=== PATIENT | female | born 1975 | race Caucasian/White ===

== ENCOUNTER 2021-04-03 14:08 | Outpatient (CLI) | payer BC, SELFPAY ==
--- NOTE | ~2021-04-03 | US_ITS ---
US abdomen limited INDICATION: Right upper quadrant pain PROCEDURE: Realtime right upper abdominal ultrasound. COMPARISON: No prior studies for comparison. FINDINGS: The pancreas is normal without focal mass or pancreatic ductal dilation. Liver echotexture is normal without focal mass or intrahepatic biliary dilatation. There is normal directional flow i n the portal vein. The gallbladder is normal without stones, gallbladder wall thickening or pericholecystic fluid. Comm on bile duct measures 3 mm. No sonographic Spring's sign. IMPRESSION: 1: Normal limited abdominal ultrasound. Reviewed, dictated and finalized at location A.
== END 2021-04-03 14:09 | disposition home or self-care (01) ==
PROVIDERS: PCP Family Medicine; Visit Provider Family Medicine
DX: R10.11 Right upper quadrant pain (principal)
CPT/HCPCS: 76705

== ENCOUNTER 2022-08-04 10:59 | Outpatient (CLI) | payer BC, SELFPAY ==
[2022-08-04 11:11] LABS: Basophils Percent Auto 0.6 % (0.2-1.2); Eosinophils Absolute Auto 0.4 K/mm3 (0-0.3); Hemoglobin 13.4 g/dL (12.0-15.0); Immature Granulocyte Absolute 0.01 K/mm3 (0.00-0.031); Immature Granulocyte Percent A 0.1 % (0-0.5); Lymphocytes Absolute Auto 2.49 K/mm3 (0.9-3.2); Lymphocytes Percent Auto 36.1 % (18.3-44.2); Mean Corpuscular HGB Conc 32.7 g/dl (32-36); Mean Corpuscular Hemoglobin 30.4 pg (26-34); Mean Platelet Volume 9.1 fl (7.4-10.4); Monocytes Absolute Auto 0.6 K/mm3 (0.1-0.6); Monocytes Percent Auto 8.3 % (2.6-8.5); Neutrophils Absolute Auto 3.4 K/mm3 (1.3-6.7); Neutrophils Percent Auto 48.9 % (45.5-73.1); Platelet Count Result 470 k/mm3 (150-375); Red Blood Count 4.41 M/mm3 (4.2-5.4); White Blood Count 6.9 K/mm3 (4.5-10.0)
[2022-08-04 12:33] LABS: Alanine Aminotransferase 18 U/L (6-35); Albumin Level 4.6 g/dL (3.5-5.1); Alkaline Phosphatase 54 U/L (38-126); Anion Gap 5 mmol/L (8-16); Aspartate Amino Transferase 14 U/L (14-36); Bilirubin,Total 0.5 mg/dL (0.2-1.3); Blood Urea Nitrogen 13 mg/dL (7-17); CRP 0.5 mg/dL (<1.0); Calcium 9.1 mg/dL (8.4-10.2); Carbon Dioxide 30 mmol/L (22-30); Chloride 103 mmol/L (98-107); Estimated Glomerular Filt Rate > 60; Glucose 102 mg/dL (65-110); Potassium 4.6 mmol/L (3.4-5.0); Sodium 138 mmol/L (137-145)
[2022-08-04 13:22] LABS: Erythrocyte Sedimentation Rate 15 mm/hr (0-20)
== END 2022-08-04 11:00 | disposition home or self-care (01) ==
LOC: ANHLAB 11:01
PROVIDERS: PCP Family Medicine; Visit Provider Internal Medicine Hematology & Oncology
DX: D47.3 Essential (hemorrhagic) thrombocythemia (principal)
CPT/HCPCS: 36415; 80053; 85025; 85652; 86140

== ENCOUNTER 2022-10-28 12:52 | Outpatient (CLI) | payer BC, SELFPAY ==
[2022-10-28 13:08] LABS: Basophils Absolute Auto 0.1 K/mm3 (0.0-0.1); Basophils Percent Auto 1.4 % (0.2-1.2); Eosinophils Absolute Auto 0.6 K/mm3 (0-0.3); Eosinophils Percent Auto 7.2 % (0-4.4); Hematocrit 40.1 % (37.0-47.0); Immature Granulocyte Absolute 0.01 K/mm3 (0.00-0.031); Immature Granulocyte Percent A 0.1 % (0-0.5); Lymphocytes Absolute Auto 2.09 K/mm3 (0.9-3.2); Lymphocytes Percent Auto 27.5 % (18.3-44.2); Mean Corpuscular HGB Conc 32.4 g/dl (32-36); Mean Corpuscular Hemoglobin 30.7 pg (26-34); Mean Corpuscular Volume 94.8 fl (80-100); Mean Platelet Volume 9.3 fl (7.4-10.4); Monocytes Absolute Auto 0.7 K/mm3 (0.1-0.6); Monocytes Percent Auto 9.3 % (2.6-8.5); Neutrophils Absolute Auto 4.1 K/mm3 (1.3-6.7); Neutrophils Percent Auto 54.5 % (45.5-73.1); Platelet Count Result 429 k/mm3 (150-375); Red Blood Count 4.23 M/mm3 (4.2-5.4); Red Cell Distribution Width 15.1 % (11.5-14.5); White Blood Count 7.6 K/mm3 (4.5-10.0)
== END 2022-10-28 12:53 | disposition home or self-care (01) ==
LOC: ANHLAB 12:54
PROVIDERS: PCP Family Medicine; Visit Provider Internal Medicine Hematology & Oncology
DX: D47.3 Essential (hemorrhagic) thrombocythemia (principal)
CPT/HCPCS: 36415; 85025

== ENCOUNTER 2023-01-27 14:14 | Outpatient (CLI) | payer BC, SELFPAY ==
[2023-01-27 14:24] LABS: Basophils Absolute Auto 0.1 K/mm3 (0.0-0.1); Eosinophils Absolute Auto 0.7 K/mm3 (0-0.3); Eosinophils Percent Auto 7.3 % (0-4.4); Hematocrit 38.9 % (37.0-47.0); Hemoglobin 12.7 g/dL (12.0-15.0); Immature Granulocyte Absolute 0.01 K/mm3 (0.00-0.031); Immature Granulocyte Percent A 0.1 % (0-0.5); Lymphocytes Absolute Auto 2.65 K/mm3 (0.9-3.2); Lymphocytes Percent Auto 29.6 % (18.3-44.2); Mean Corpuscular HGB Conc 32.6 g/dl (32-36); Mean Corpuscular Volume 94.9 fl (80-100); Monocytes Absolute Auto 0.8 K/mm3 (0.1-0.6); Monocytes Percent Auto 9.2 % (2.6-8.5); Neutrophils Absolute Auto 4.7 K/mm3 (1.3-6.7); Neutrophils Percent Auto 52.8 % (45.5-73.1); Platelet Count Result 391 k/mm3 (150-375); Red Cell Distribution Width 14.2 % (11.5-14.5)
== END 2023-01-27 14:15 | disposition home or self-care (01) ==
LOC: ANHLAB 14:15
PROVIDERS: PCP Family Medicine; Visit Provider Internal Medicine Hematology & Oncology
DX: D47.3 Essential (hemorrhagic) thrombocythemia (principal)
CPT/HCPCS: 36415; 85025

== ENCOUNTER 2023-03-19 10:00 | Outpatient (CLI) | payer BC, SELFPAY ==
--- NOTE | ~2023-03-19 | XR_ITS ---
Thoracic spine: Clinical Indication: Stiffness AP and lateral views were performed. No fracture is seen. There is normal alignment of the vertebrae. There is mild degenerative disc dis ease at the lower thoracic spine. Paravertebral soft tissues appear normal. 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 Reviewed, dictated and finalized at [facility]. 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
== END 2023-03-19 10:01 | disposition home or self-care (01) ==
PROVIDERS: PCP Family Medicine; Visit Provider Family Medicine
DX: M25.60 Stiffness of unspecified joint, not elsewhere classified (principal); M51.34 Other intervertebral disc degeneration, thoracic region
CPT/HCPCS: 72072

== ENCOUNTER 2023-08-03 12:43 | Outpatient (CLI) | payer BC, SELFPAY ==
[2023-08-03 12:55] LABS: Basophils Absolute Auto 0.1 K/mm3 (0.0-0.1); Basophils Percent Auto 1.1 % (0.2-1.2); Eosinophils Absolute Auto 0.6 K/mm3 (0-0.3); Eosinophils Percent Auto 7.7 % (0-4.4); Hematocrit 40.3 % (37.0-47.0); Hemoglobin 12.9 g/dL (12.0-15.0); Immature Granulocyte Absolute 0.02 K/mm3 (0.00-0.031); Immature Granulocyte Percent A 0.2 % (0-0.5); Lymphocytes Percent Auto 24.8 % (18.3-44.2); Mean Corpuscular Hemoglobin 30.6 pg (26-34); Mean Corpuscular Volume 95.7 fl (80-100); Monocytes Absolute Auto 0.8 K/mm3 (0.1-0.6); Monocytes Percent Auto 10.3 % (2.6-8.5); Neutrophils Absolute Auto 4.5 K/mm3 (1.3-6.7); Neutrophils Percent Auto 55.9 % (45.5-73.1); Platelet Count Result 399 k/mm3 (150-375); Red Blood Count 4.21 M/mm3 (4.2-5.4); Red Cell Distribution Width 14.9 % (11.5-14.5); White Blood Count 8.1 K/mm3 (4.5-10.0)
== END 2023-08-03 12:44 | disposition home or self-care (01) ==
LOC: ANHLAB 12:45
PROVIDERS: PCP Family Medicine; Visit Provider Internal Medicine Hematology & Oncology
DX: D47.3 Essential (hemorrhagic) thrombocythemia (principal)
CPT/HCPCS: 36415; 85025

== ENCOUNTER 2023-10-09 11:40 | Emergency (ER) | payer BC, SELFPAY ==
[2023-10-09] VITALS (40 sets, daily range): BP systolic 126–184; BP diastolic 71–139; PULSE 91–125; RESP 13–26; O2SAT 89–100
--- NOTE | 2023-10-09 12:03 | ED.NAVMDI ---
HPI - Nausea/Vomiting/Diarrhea General Chief complaint: Nausea/Vomiting/Diarrhea Stated complaint: severely dehydrated Time Seen by Provider: 10/09/23 12:00 History of Present Illness HPI Narrative: Patient is a 48 year old female with history of HTN here with nausea, vomiting, dizziness. She notes that 2 days ago she started noticing some redness behind her left ear along with some crusting drainage around her piercing on that ear. She went to an urgent care that day and was started on Bactrim for possible cellulitis. Her erythema and drainage have significantly improved since that time, has some continued pain in that area. She did go out for drinks 2 nights ago while watching [employer] games. Wednesday she woke up feeling poorly. She has vomited multiple times and this morning is unable to keep anything down. She has been feeling shaky and jittery, making her concerned for dehydration. She denies any chest pain. She does note some diffuse nonspecific abdominal pain after multiple episodes of vomiting. Related Data Home Medications Medication Instructions Recorded Confirmed methylphenidate HCl 10 mg tablet 10 mg PO BID 10/25/20 07/30/23 (Ritalin) estradiol 0.05 mg-norethindrone 1 patch transdermal 2XW 03/10/22 07/30/23 0.14 mg/24 hr semiwkly transderm patch (CombiPatch) Allergies Allergy/AdvReac Type Severity Reaction Status Date / Time No Known Allergies Allergy Unverified 10/09/23 12:09 Review of Systems Review of Systems: All systems reviewed & are unremarkable except as noted in HPI and below PMFSH Past Medical History Medical History ADD (attention deficit disorder) without hyperactivity Dyspepsia Elevated liver enzymes Elevated platelet count Family history of ankylosing spondylitis Headache HTN (hypertension) Hyperlipidemia Postmenopausal HRT (hormone replacement therapy) Premature ovarian failure Tachycardia Family History Family History Father Asthma Diabetes mellitus Mother Hypertension Depression Social History Social History (Updated 07/30/23 @ 15:05 by Karlene Judge) Social History: Single Smoking status: Never smoker Second hand tobacco smoke exposure: No Alcohol intake: current Alcohol use details: Occasionally Substance use: never Substance use type: does not use Do You Feel Safe in your Home?: Yes Lack of Transportation: No Lack of Food: Never True Current Housing: I Have Housing Concerned About Future Housing: No Difficulty Paying Gas/Electric Bills: No Difficulty Paying for Meds: No Currently Unemployed: No Education: Don't Know Difficulty w/ Childcare or Family Care: No Living arrangements: with family Occupation/Education: occupation 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 Gender identity (if verbalized by the patient): Female Sexual Orientation (if Verbalized by the Patient): Straight or Heterosexual Exam Narrative: GENERAL: Well-appearing, well-nourished, and in no acute distress. HEAD: Normocephalic, atraumatic. EYES: PERRLA and EOMI. ENT: Nares clear. Mucous membranes dry. NECK: Supple. CHEST: Clear to auscultation. No respiratory distress. HEART: Regular rate and rhythm. Normal peripheral pulses. ABDOMEN: Soft, nontender, nondistended. EXTREMITIES: Normal range of motion. No edema. SKIN: Warm, dry, no rash. no erythema, drainage, crusting on or around the left ear. No tenderness over the mastoid process. No swelling to this area. NEURO: No focal deficits. Alert and oriented x3. PSYCH: Normal mood and affect. Course Course Emergency Course: Chart review performed. Patient here with concerns for dehydration after multiple episodes of vomiting. PCP note from 07/30/23 reviewed. History of HTN, KAELYN, GERD. depression. Patient seen evaluated, nontoxic appearing. Concern
--- NOTE | 2023-10-09 12:58 | ECG_ITS ---
Measurements Intervals [place] Rate: 85 P: 43 WI: 142 QRS: 42 QRSD: 82 T: 29 QT: 403 QTc: 481 Interpretive Statements SINUS RHYTHM BASELINE ARTIFACT- V5 NORMAL ECG NO PREVIOUS ECG AVAILABLE FOR COMPARISON Electronically Signed On 10-09-2023 16:55:32 CDT by Corky Kinney D.O.
[2023-10-09] MEDS: ONDANSETRON INJ 4 MG/2 ML VIAL IV PUSH (13:03)
[2023-10-09] MEDS: LACTATED RINGERS 1,000 ML 999 ML IV CONT ×2 (13:03→14:38)
[2023-10-09 13:12] LABS: Basophils Absolute Auto 0.1 K/mm3 (0.0-0.1); Basophils Percent Auto 0.5 % (0.2-1.2); Hematocrit 39.4 % (37.0-47.0); Hemoglobin 13.1 g/dL (12.0-15.0); Immature Granulocyte Absolute 0.03 K/mm3 (0.00-0.031); Immature Granulocyte Percent A 0.3 % (0-0.5); Lymphocytes Absolute Auto 0.82 K/mm3 (0.9-3.2); Mean Corpuscular HGB Conc 33.2 g/dl (32-36); Mean Corpuscular Hemoglobin 30.6 pg (26-34); Mean Corpuscular Volume 92.1 fl (80-100); Mean Platelet Volume 9.7 fl (7.4-10.4); Monocytes Absolute Auto 0.4 K/mm3 (0.1-0.6); Monocytes Percent Auto 3.6 % (2.6-8.5); Neutrophils Percent Auto 87.6 % (45.5-73.1); Platelet Count Result 407 k/mm3 (150-375); Red Blood Count 4.28 M/mm3 (4.2-5.4); Red Cell Distribution Width 15.1 % (11.5-14.5); White Blood Count 10.3 K/mm3 (4.5-10.0)
[2023-10-09 13:30] LABS: Alanine Aminotransferase 46 U/L (6-35); Alkaline Phosphatase 90 U/L (38-126); Anion Gap 19 mmol/L (4-12); Aspartate Amino Transferase 29 U/L (14-36); Blood Urea Nitrogen 6 mg/dL (7-17); Carbon Dioxide 18 mmol/L (22-30); Chloride 103 mmol/L (98-107); Estimated CRCL calculation 86 ml/min; Estimated Glomerular Filt Rate > 60; Glucose 118 mg/dL (65-110); Lipase 67 U/L (23-300); Magnesium 1.7 mg/dL (1.6-2.3); Potassium 3.7 mmol/L (3.4-5.0); Sodium 140 mmol/L (137-145)
[2023-10-09 13:37] LABS: Erythrocyte Sedimentation Rate 27 mm/hr (0-20)
[2023-10-09 13:38] LABS: CRP < 0.5 mg/dL (<1.0)
[2023-10-09 13:48] LABS: Influenza A QL RT-PCR Negative (Negative); Influenza B QL RT-PCR Negative (Negative); RSV RNA, RT-PCR Negative (Negative); SARS-CoV-2 RNA PCR Negative (Negative)
[2023-10-09] MEDS: MAGNESIUM SULF 2 GM/WATER 50ML 2 GM/50 ML BAG IVPB (14:30)
[2023-10-09 16:19] LABS: Appearance Urine Cloudy (Clear); Bacteria Urine 1+ /hpf; Bilirubin Urine Negative (Negative); Blood Urine Trace (Negative); Color Urine Yellow (Yellow); Glucose Urine UA Negative (Negative); Ketones Urine 4+ mg/dL (Negative); Leukocyte Esterase Ur Negative LEU/UL (Negative); Nitrate Urine Negative (Negative); Non Pathogenic Casts 0-2; Protein Urine 3+ mg/dL (Negative); Squamous Epithelial Cell Urine Few /hpf (Few); Urobilinogen Urine 0.2 mg/dL (<2.0); WBC Urine 0-5 /hpf (0-3)
[2023-10-09 16:20] LABS: Add Urine Microscopic? YES
[2023-10-09] MEDS: LORazepam (*CRX) 0.5 MG TABLET PO (16:48)
== END 2023-10-09 17:00 | disposition home or self-care (01) ==
PROVIDERS: Emergency Provider Student in an Organized Health Care Education/Training Program; PCP Family Medicine
DX: R11.2 Nausea with vomiting, unspecified (principal); Z20.822 Contact with and (suspected) exposure to COVID-19; F98.8 Other specified behavioral and emotional disorders with onset usually occurring in childhood and adolescence; I10 Essential (primary) hypertension; E78.5 Hyperlipidemia, unspecified
CPT/HCPCS: 36415; 80053; 81001; 81025; 83690; 83735; 85025; 85652; 86140; 87637; 93005; 96361; 96365; 96366; 96375; 99284; A9270; J2405; J3475; J7120

== ENCOUNTER 2024-01-24 15:28 | Outpatient (CLI) | payer BC, SELFPAY ==
[2024-01-24 16:12] LABS: Basophils Percent Auto 0.6 % (0.2-1.2); Eosinophils Absolute Auto 0.2 K/mm3 (0-0.3); Eosinophils Percent Auto 3.2 % (0-4.4); Hematocrit 40.3 % (37.0-47.0); Immature Granulocyte Absolute 0.03 K/mm3 (0.00-0.031); Immature Granulocyte Percent A 0.4 % (0-0.5); Lymphocytes Absolute Auto 1.45 K/mm3 (0.9-3.2); Lymphocytes Percent Auto 20.4 % (18.3-44.2); Mean Corpuscular HGB Conc 32.3 g/dl (32-36); Mean Corpuscular Hemoglobin 31.6 pg (26-34); Mean Corpuscular Volume 97.8 fl (80-100); Mean Platelet Volume 9.5 fl (7.4-10.4); Monocytes Absolute Auto 0.3 K/mm3 (0.1-0.6); Monocytes Percent Auto 4.6 % (2.6-8.5); Neutrophils Percent Auto 70.8 % (45.5-73.1); Platelet Count Result 396 k/mm3 (150-375); Red Blood Count 4.12 M/mm3 (4.2-5.4); Red Cell Distribution Width 15.1 % (11.5-14.5); White Blood Count 7.1 K/mm3 (4.5-10.0)
[2024-01-24 16:45] LABS: Alanine Aminotransferase 146 U/L (6-35); Albumin Level 4.7 g/dL (3.5-5.1); Alkaline Phosphatase 65 U/L (38-126); Anion Gap 11 mmol/L (4-12); Aspartate Amino Transferase 79 U/L (14-36); Bilirubin,Total 0.4 mg/dL (0.2-1.3); Blood Urea Nitrogen 9 mg/dL (7-17); Calcium 8.6 mg/dL (8.4-10.2); Carbon Dioxide 28 mmol/L (22-30); Chloride 103 mmol/L (98-107); Estimated Glomerular Filt Rate > 60; Glucose 91 mg/dL (65-110); Potassium 4.3 mmol/L (3.4-5.0); Sodium 142 mmol/L (137-145)
[2024-01-24 17:06] LABS: Free T4 Free Thyroxine 0.92 ng/mL (0.78-2.19)
== END 2024-01-24 15:29 | disposition home or self-care (01) ==
LOC: ANHLAB 15:30
PROVIDERS: PCP Family Medicine; Visit Provider Student in an Organized Health Care Education/Training Program
DX: R42 Dizziness and giddiness (principal); E03.9 Hypothyroidism, unspecified
CPT/HCPCS: 36415; 80053; 84439; 84443; 85025

== ENCOUNTER 2024-02-01 13:02 | Outpatient (CLI) | payer BC, SELFPAY ==
[2024-02-01 13:15] LABS: Basophils Absolute Auto 0.1 K/mm3 (0.0-0.1); Eosinophils Absolute Auto 0.5 K/mm3 (0-0.3); Eosinophils Percent Auto 5.3 % (0-4.4); Hematocrit 42.6 % (37.0-47.0); Hemoglobin 13.8 g/dL (12.0-15.0); Immature Granulocyte Absolute 0.02 K/mm3 (0.00-0.031); Immature Granulocyte Percent A 0.2 % (0-0.5); Lymphocytes Absolute Auto 2.77 K/mm3 (0.9-3.2); Lymphocytes Percent Auto 30.2 % (18.3-44.2); Mean Corpuscular HGB Conc 32.4 g/dl (32-36); Mean Corpuscular Hemoglobin 31.4 pg (26-34); Mean Corpuscular Volume 96.8 fl (80-100); Mean Platelet Volume 8.9 fl (7.4-10.4); Monocytes Absolute Auto 0.7 K/mm3 (0.1-0.6); Neutrophils Absolute Auto 5.1 K/mm3 (1.3-6.7); Neutrophils Percent Auto 55.3 % (45.5-73.1); Platelet Count Result 434 k/mm3 (150-375); Red Cell Distribution Width 14.6 % (11.5-14.5); White Blood Count 9.2 K/mm3 (4.5-10.0)
[2024-02-01 13:20] LABS: Blood Urea Nitrogen 10 mg/dL (8-26); Carbon Dioxide 27 mmol/L (22-30); Chloride 103 mmol/L (98-109); Estimated Glomerular Filt Rate 60; Glucose 102 mg/dL (70-105); Ionized Calcium (POC) 1.14 mmol/L (1.11-1.31); Potassium 4.3 mmol/L (3.5-4.9); Sodium 139 mmol/L (138-146)
== END 2024-02-01 13:03 | disposition home or self-care (01) ==
LOC: ANHLAB 13:04
PROVIDERS: PCP Family Medicine; Visit Provider Internal Medicine Hematology & Oncology
DX: D47.3 Essential (hemorrhagic) thrombocythemia (principal)
CPT/HCPCS: 36415; 80047; 85025

== ENCOUNTER 2024-02-04 07:25 | Outpatient (CLI) | payer BC, SELFPAY ==
--- NOTE | ~2024-02-04 | CT_ITS ---
EXAMINATION: CT sinus wo con DATE: 02/04/2024 07:42 INDICATION: Dizziness and giddiness TECHNIQUE: Computed tomography (CT) of the paranasal sinuses was performed without intravenous contra st. The dose-length product was 296.82 mGy-cm. Automated exposure control and iterative reconstruction technique were employed. COMPARISON: None FINDINGS: There is mild mucosal thickening of the maxillary and ethmoid sinuses. No significant nasal septal deviation. Ostiomeatal units are patent. No air-fluid levels or mucoperiosteal reaction. Mast oids are pneumatized. IMPRESSION: 1. Mild sinus disease. Reviewed, dictated and finalized at location B. IMPRESSION: 1. Mild sinus disease.
== END 2024-02-04 07:26 | disposition home or self-care (01) ==
PROVIDERS: PCP Family Medicine; Visit Provider Student in an Organized Health Care Education/Training Program
DX: J34.89 Other specified disorders of nose and nasal sinuses (principal)
CPT/HCPCS: 70486

== ENCOUNTER 2024-08-08 13:15 | Outpatient (CLI) | payer BC, SELFPAY ==
[2024-08-08 13:30] LABS: Basophils Absolute Auto 0.1 K/mm3 (0.0-0.1); Basophils Percent Auto 1.3 % (0.2-1.2); Eosinophils Absolute Auto 0.7 K/mm3 (0-0.3); Eosinophils Percent Auto 8.4 % (0-4.4); Hematocrit 39.8 % (37.0-47.0); Hemoglobin 12.8 g/dL (12.0-15.0); Immature Granulocyte Absolute 0.02 K/mm3 (0.00-0.031); Immature Granulocyte Percent A 0.2 % (0-0.5); Lymphocytes Absolute Auto 2.64 K/mm3 (0.9-3.2); Lymphocytes Percent Auto 31.6 % (18.3-44.2); Mean Corpuscular HGB Conc 32.2 g/dl (32-36); Mean Corpuscular Hemoglobin 30.6 pg (26-34); Mean Corpuscular Volume 95.2 fl (80-100); Mean Platelet Volume 8.9 fl (7.4-10.4); Monocytes Absolute Auto 0.6 K/mm3 (0.1-0.6); Monocytes Percent Auto 7.4 % (2.6-8.5); Neutrophils Absolute Auto 4.3 K/mm3 (1.3-6.7); Neutrophils Percent Auto 51.1 % (45.5-73.1); Platelet Count Result 492 k/mm3 (150-375); Red Blood Count 4.18 M/mm3 (4.2-5.4); Red Cell Distribution Width 14.3 % (11.5-14.5); White Blood Count 8.4 K/mm3 (4.5-10.0)
[2024-08-08 13:34] LABS: Blood Urea Nitrogen 13 mg/dL (8-26); Carbon Dioxide 26 mmol/L (22-30); Chloride 102 mmol/L (98-109); Estimated Glomerular Filt Rate 53; Glucose 86 mg/dL (70-105); Ionized Calcium (POC) 1.17 mmol/L (1.11-1.31); Potassium 4.2 mmol/L (3.5-4.9); Sodium 140 mmol/L (138-146)
--- OUTSIDE RECORDS SUMMARY | 2024-08-08 13:54 | XMS_ITS | Referral Summary ---
Author Organization [facility] Address [address] [place] [address] Care Team Providers Care Supervisor Locomotive Name Role Phone Sample, Jelani Grigsby MD Unavailable [phone] Becki Nichols MD Primary Care Provider + Source Comments [facility] [employer],non-owned Affiliates and Associated Physician Practices is amultiple site organization consisting of ambulatory clinics and hospital sitesin [place], [place], [place] and [place]. This disclosure is being madepursuant to the Care Everywhere program and may not contain all information available regarding this patient. Last updated 18.[facility] [employer] Allergies No known active allergies Medications * Be aware that medications may not be up to date on this document. Alwaysverify current medications with the patient. Medication Sig Dispensed Refills Start Date End Date Status FLUoxetine (PROzac) 40 MG capsule Take 60 mg by mouth twice daily, before 1 meal & at bedtime. Active LORazepam (ATIVAN) 1 MG tablet Take 1 mg by mouth at bedtime Active gabapentin (NEURONTIN) 300 MG capsule 09/17/2019 Active methylphenidate (Ritalin) 20 MG tablet TAKE 1 & 1/2 TABLET BY MOUTH TWICE A DAY NEEDED 05/04/2022 Active metoprolol tartrate IR (Lopressor) 25 MG tablet Take 1 (one) tablet by mouth 2 times daily 04/06/2022 Active estradiol-norethindr one (Combipatch) 0.05-0.14 MG/DAY patchIndications:Est rogen Deficiency (Inactive),Vasomotor Symptoms of Menopause Apply 1 patch to skin Two times a week Reasons: ESTROGEN DEFICIENCY (INACTIVE), Symptoms of Menopause 24 patch 4 07/19/2023 Active Active Problems No known active problems Social History Tobacco Use Types Packs/Day Years Used Date Smoking Tobacco: Never Smokeless Tobacco: Never Tobacco Cessation:Counseling Given: Not Answered Alcohol Use Standard Drinks/Week Comments Yes 0 (1 standard drink = 0.6 oz pur e alcohol) social PHQ-2 Answer Date Recorded Patient Health Questionnaire-2 Score 4 07/16/2023 Sex and Gender Information Value Date Recorded Sex Assigned at Female 01/21/2021 3:02 PM CDT Gender Identity Female 01/21/2021 3:02 PM CDT Sexual Orientation Not on file Last Filed Vital Signs Vital Sign Reading Time Taken Comments Blood Pressure 148/110 05/19/2022 3:54 PM INSIDE SALES SPECIALIST Pulse 100 08/14/2016 9:26 AM INSIDE SALES SPECIALIST Temperature - - Respiratory Rate 18 05/19/2022 3:54 PM INSIDE SALES SPECIALIST Oxygen Saturation - - Inhaled Oxygen Concentration - - Weight 81.6 kg (180 lb) 07/20/2023 4:40 PM INSIDE SALES SPECIALIST Height 162.6 cm (5' 4 ) 05/19/2022 3:54 PM INSIDE SALES SPECIALIST Body Mass Index 30.9 05/19/2022 3:54 PM INSIDE SALES SPECIALIST Plan of Treatment Not on file Procedures Procedure Name Priority Date/Time Associated Diagnosis Comments MAMMO BILAT SCREENING W JAJA Routine 06/03/2022 3:16 PM INSIDE SALES SPECIALIST Well woman exam PAP IG LB +HPV APTIMA REFLEX 16,18/45 Routine 05/19/2022 4:08 PM INSIDE SALES SPECIALIST Well woman exam Special screening examination for human papillomavirus (HPV) HEPATITIS C ANTIBODY Routine 08/06/2014 12:21 PM INSIDE SALES SPECIALIST Screen for STD (sexually transmitted disease) HIV-1 HIV-2 ANTIBODY Routine 08/06/2014 12:21 PM INSIDE SALES SPECIALIST Screen for STD (sexually transmitted disease) from Last 3 Months or Most Recently Relevant to Health Maintenance Results * MAMMO BILAT SCREENING W JAJA (06/03/2022 3:16 PM INSIDE SALES SPECIALIST) Anatomical Region Laterality Modality Breast Bilateral Mammography 06/03/2022 3:49 PM INSIDE SALES SPECIALIST Impressions 06/03/2022 3:51 PM INSIDE SALES SPECIALIST : Annual screening mammography is recommended. OVERALL FINAL ASSESSMENT: ??BI-RADS Category 1: Negative. ?? > Interpreting Provider: Sugar Alvarado MD on 06/03/2022 3:51 PM Narrative 06/03/2022 3:51 PM INSIDE SALES SPECIALIST EXAMINATION: BILATERAL DIGITAL SCREENING MAMMOGRAM AND BILATERAL BREAST TOMOSYNTHESIS HISTORY: Screening. COMPARISON: Serial examinations dating back to 10/01/2017 TECHNIQUE: ??BILATERAL digital breast tomosynthesis (DBT) and synthetic 2D digital mammogram images were obtained (bilateral craniocaudal and mediolateral oblique projections) including computer aided detection (CAD.) BREAST PARENCHYMAL COMPOSITION:Category C: The breasts are heterogeneously dense which may obscure small masses. MAMMOGRAM FINDINGS: There is no suspicious finding in either breast. Overall, there has been no significant interval change. Kacie Seb DYNAMOMETER TUNER-BUTTON SPINDLER MAMMO ORDERABLES * PAP IG LB +HPV APTIMA REFLEX 16,18/45 (05/19/2022 4:08 PM INSIDE SALES SPECIALIST) Diagnosis [facility] ACCOUNT BILL Comment: NEGATIVE FOR INTRAEPITHELIAL LESION OR MALIGNANCY. THIS SPECIMEN WAS RESCREENED PART OF OUR PAD MACHINE OFFBEARER PROGRAM. Specimen Adequacy [facility] ACCOUNT BILL Comment: Satisfactory for evaluation. ??Endocervical and/or squamous metaplastic cells (endocervical component) are present. Clinician Provided ICD10 [facility] ACCOUNT BILL Comment: Z01.419 Z11.51 N95.0 Performed by [facility] ACCOUNT BILL Comment:Nohemi Garcia, Joiner Apprentice (ASCP) QC Reviewed by [facility] ACCOUNT BILL Comment:Karen Sahni, Cytot echnologist ([facility]) Comment . [facility] ACCOUNT BILL Note [facility] ACCOUNT BILL Comment: The Pap smear is a screening test designed to aid in the detection of premalignant and malignant conditions of the uterine cervix. ??It is not a diagnostic procedure and should not be used as the sole means of detecting cervical cancer. ??Both false-positive and false-negative reports do occur. ? . IGLBP CPT Code Automation [facility] ACCOUNT BILL Comment: This liquid based ThinPrep(R) pap test was screened with the use of an image guided system. Human papillomavirus Aptima Negative Negative [facility] ACCOUNT BILL Comment: This nucleic acid amplification test detects fourteen high-risk HPV types (16,18,31,33,35,39,45,51,52,56,58,59,66,68) without differentiation. HPV Genotype Reflexed [facility] ACCOUNT BILL Comment:Criteria not met, HP V Genotype not performed. PART OF UTERINE CERVIX / Unknown 05/19/2022 4:08 PM INSIDE SALES SPECIALIST 05/20/2022 Narrative [facility] ACCOUNT BILL - 05/25/2022 4:07 PM INSIDE SALES SPECIALIST No. of containers..01 ThinPrep Vial Resulting Agency Comment Lab Testing performed at: [address] ??[facility] [id number] Kacie Grigsby APRN-MELODY LAB - PATHOLOGY/C YTOLOGY ORDERABLES Performing Organization Address City/[facility]/ZIP Co de Phone Number [facility] ACCOUNT BILL [address] [place] [address] * HIV-1 HIV-2 ANTIBODY (08/06/2014 12:21 PM INSIDE SALES SPECIALIST) HIV-1 Antibody O.D. Ratio <1.00 <1.00 [facility] ACCOUNT BILL Comment:Index Value: Specime n reactivity relative to the negative cutoff. HIV-1/HIV-2 Non Reactive Non Reactive [facility] ACCOUNT BILL Blood specimen (specimen) BLOOD SPECIMEN / Unknown 08/06/2014 12:21 PM INSIDE SALES SPECIALIST 08/06/2014 5:03 PM INSIDE SALES SPECIALIST Narrative Resulting Agency Comment [facility] [address] ??[facility] [phone] Jelani Macias MD LAB - CHEMISTRY KOFI GRADY [facility] ACCOUNT BILL * HEPATITIS C ANTIBODY (08/06/2014 12:21 PM INSIDE SALES SPECIALIST) Hepatitis C Antibody 0.2 0.0 - 0.9 s/co ratio [facility] ACCOUNT BILL Comment: ? Negative: ? < 0.8 ?Indeterminate: 0.8 - 0.9 ? Positive: ? > 0.9 ? . ? In order to reduce the incidence of a false positive ? result, the CDC recommends that all s/co ratios ? between 1.0 and 10.9 be confirmed by a more specific ? supplemental or PCR testing. [facility] offers HCV Ab ? w/Reflex to Verification test #[id number]. Blood specimen (specimen) BLOOD SPECIMEN / Unknown 08/06/2014 12:21 PM INSIDE SALES SPECIALIST 08/06/2014 5:03 PM INSIDE SALES SPECIALIST Narrative Resulting Agency Comment [facility] [place] [address] ??[place] [phone] Jelani Macias MD LAB - CHEMISTRY KOFI GRADY [facility] ACCOUNT BILL from Last 3 Months or Most Recently Relevant to Health Maintenance Care Teams Supervisor Locomotive Relationship Specialty Start Date End Date Becki Nichols MD [address] [facility] [address] [place], [place] [id number] PCP - General Family Medicine 05/15/21 [place], [place] [address] [facility] [address] [place] [address] Senior Product Consultant Obstetrics and Gynecology 08/06/14
--- OUTSIDE RECORDS SUMMARY | 2024-08-08 13:54 | XMS_ITS | Patient Health Summary ---
Author Organization [facility] Address [address] [place] [address] Care Team Providers Care Angle Furnaceman Name Role Phone Sample, Jelani Grigsby MD Unavailable [phone] Becki Nichols MD Primary Care Provider + Note from [facility],non-owned Affiliates and Associated Physician Practices is amultiple site organization consisting of ambulatory clinics and hospital sitesin [place], [place], [place] and [place]. This disclosure is being madepursuant to the Care Everywhere program and may not contain all information available regarding this patient. Last updated 18.[facility] Allergies No known active allergies Medications * Be aware that medications may not be up to date on this document. Alwaysverify current medications with the patient. * FLUoxetine (PROzac) 40 MG capsule Take 60 mg by mouth twice daily, before 1 meal & at bedtime. * LORazepam (ATIVAN) 1 MG tablet Take 1 mg by mouth at bedtime * gabapentin (NEURONTIN) 300 MG capsule(Started 09/17/2019) * methylphenidate (Ritalin) 20 MG tablet(Started 05/04/2022) TAKE 1 & 1/2 TABLET BY MOUTH TWICE A DAY NEEDED * metoprolol tartrate IR (Lopressor) 25 MG tablet(Started 04/06/2022) Take 1 (one) tablet by mouth 2 times daily * estradiol-norethindrone (Combipatch) 0.05-0.14 MG/DAY patch(Started 07/19/2023) Apply 1 patch to skin Two times a week Reasons: ESTROGEN DEFICIENCY (INACTIVE), Symptoms of Menopause 4 refills by 07/18/2024 Active Problems No known active problems Social [...] Comments Blood Pressure 148/110 05/19/2022 3:54 PM RESEARCH EPIDEMIOLOGIST Pulse 100 08/14/2016 9:26 AM RESEARCH EPIDEMIOLOGIST Temperature - - Respiratory Rate 18 05/19/2022 3:54 PM RESEARCH EPIDEMIOLOGIST Oxygen Saturation - - Inhaled Oxygen Concentration - - Weight 81.6 kg (180 lb) 07/20/2023 4:40 PM RESEARCH EPIDEMIOLOGIST Height 162.6 cm (5' 4 ) 05/19/2022 3:54 PM RESEARCH EPIDEMIOLOGIST Body Mass Index 30.9 05/19/2022 3:54 PM RESEARCH EPIDEMIOLOGIST Procedures * US PELVIS W TRANSVAG NON OB(Performed 06/03/2022) Performed for PMB (postmenopausal bleeding) * MAMMO BILAT SCREENING W JAJA(Performed 06/03/2022) Performed for Well woman exam * PAP IG LB +HPV APTIMA REFLEX 16,18/45(Performed 05/19/2022) Performed for Well woman exam, Special screening examination for human papillomavirus (HPV) * MAMMO BILAT SCREENING W JAJA(Performed 05/15/2021) Performed for Well woman exam with routine gynecological exam * ESTRADIOL(Performed 02/05/2021) Performed for Amenorrhea * FSH + LH PANEL(Performed 02/05/2021) Performed for Amenorrhea * TSH(Performed 02/05/2021) Performed for Amenorrhea * HCG URINE QUALITATIVE - POINT OF CARE (AMB) STL(Performed 01/27/2021) Performed for Irregular menses * CHLAMYDIA + GC + TRICH DNA AMPL(Performed 09/20/2019) Performed for Well woman exam with routine gynecological exam, Screening examination for venereal disease, Possible exposure to STD * PAP IG LB+CT+NG+TV+HPV APTIMA RFLX 16,18/45(Performed 09/07/2018) Performed for Well woman exam with routine gynecological exam, Encounter for screening for human papillomavirus (HPV), Screening examination for venereal disease * MAMMO BILAT SCREENING(Performed 10/01/2017) Performed for Well woman exam with routine gynecological exam * CHLAMYDIA + GC + TRICH DNA AMPL(Performed 09/01/2017) Performed for Well woman exam with routine gynecological exam, Screening examination for venereal disease * VAGINITIS PLUS (BV CA CT NG TRICH)(Performed 08/14/2016) Performed for Well woman exam with routine gynecological exam, Screen for STD (sexually transmitteddisease) * PAP W NATHANIEL HPV HR+HPV 16/18(Performed 08/09/2015) Performed for Well female exam with routine gynecological exam * HIV-1 HIV-2 ANTIBODY(Performed 08/06/2014) Performed for Screen for STD (sexually transmitted disease) * RPR(Performed 08/06/2014) Performed for Screen for STD (sexually transmitted disease) * HEPATITIS B SURFACE ANTIGEN W RFLX CONFIRMATION(Performed 08/06/2014) Performed for Screen for STD (sexually transmitted disease) * HEPATITIS C ANTIBODY(Performed 08/06/2014) Performed for Screen for STD (sexually transmitted disease) * HERPES SIMPLEX 2 ANTIBODY IGG(Performed 08/06/2014) Performed for Screen for STD (sexually transmitted disease) * VAGINITIS PLUS (BV CA CT NG TRICH)(Performed 08/06/2014) Performed for Routine gynecological examination * CHLAMYDIA + GC + TRICH DNA AMPL(Performed 08/04/2013) Performed for Routine gynecological examination * PAP IG LB CT+NG SELVIN+NATHANIEL HPV 16,18(Performed 07/15/2012) Performed for Routine gynecological examination Results * US PELVIS W TRANSVAG NON OB (06/03/2022 3:20 PM RESEARCH EPIDEMIOLOGIST) Anatomical Region Laterality Modality Pelvis Ultrasound 06/03/2022 3:36 PM RESEARCH EPIDEMIOLOGIST Impressions 06/03/2022 4:34 PM RESEARCH EPIDEMIOLOGIST IMPRESSION: 1. Endometrial thickness is within normal limits. There is some fluid seen within the endometrium which could represent hemorrhagic debris. 2. Probable findings of fibroids of the uterus. 3. Right and left ovary appears unremarkable. Edited by Jeny Felix on 06/03/2022 3:58 PM > Interpreting Provider: Roshan Ramos MD on 06/03/2022 4:34 PM Narrative 06/03/2022 4:34 PM RESEARCH EPIDEMIOLOGIST PROCEDURE: ??US PELVIS W TRANSVAG NON OB, DATE/TIME OF EXAM: ??06/03/2022 3:20 PM, LOCATION ??[facility] INDICATION: N95.0: Postmenopausal bleeding COMPARISON: none FINDINGS: The uterus measures 64 x 27 x 35 mm diameter. The endometrium thickness is 21 mm which is normal.There is a small amount of fluid within the endometrial cavity. There is a hypodensity at the posterior uterine body measuring 12 x 7 x 10 mm which is probably a subserosal fibroid. At the anterior fundus, there is a hypoechoic nodule measuring 15 x 8 x 14 mm which is probably a fibroid. The right ovary measures 20 x 11 x 22 mm diameter. ??There is no nodule identified within the ovary. Doppler was not performed of the ovary. The left ovary 18 x 11 x 16 mm diameter. ?? This is normal in echogenicity. Doppler was not performed of the ovary. Procedure Note Roshan Ramos MD - 06/03/2022 PROCEDURE: US PELVIS W TRANSVAG NON OB, DATE/TIME OF EXAM: 06/03/2022 3:20 PM, LOCATION [facility] INDICATION: N95.0: Postmenopausal bleeding COMPARISON: none FINDINGS: The uterus measures 64 x 27 x 35 mm diameter. The endometrium thickness is 21 mm which is normal.There is a small amount of fluidwithin the endometrial cavity. There is a hypodensity at the posterior uterine body measuring 12 x 7 x 10 mm which is probably a subserosal fibroid. At the anterior fundus, there is a hypoechoic nodule measuring 15 x 8 x 14mm which is probably a fibroid. The right ovary measures 20 x 11 x 22 mm diameter. There is no nodule identified within the ovary. Doppler was not performed of the ovary. The left ovary 18 x 11 x 16 mm diameter. This is normal inechogenicity. Doppler was not performed of the ovary. IMPRESSION: 1. Endometrial thickness is within normal limits. There is some fluidseen within the endometrium which could represent hemorrhagic debris. 2. Probable findings of fibroids of the uterus. 3. Right and left ovary appears unremarkable. Edited by Jeny Felix on 06/03/2022 3:58 PM > Interpreting Provider: Roshan Ramos MD on 06/03/2022 4:34 PM Kacie Seb VALIDATION ARCHITECT-SOCIAL WORK NURSE US ORDERABLES * MAMMO BILAT SCREENING W JAJA (06/03/2022 3:16 PM RESEARCH EPIDEMIOLOGIST) Only the most recent of2 resultswithin the time period is included. Anatomical Region Laterality Modality Breast Bilateral Mammography 06/03/2022 3:49 PM RESEARCH EPIDEMIOLOGIST Impressions 06/03/2022 3:51 PM RESEARCH EPIDEMIOLOGIST : Annual screening mammography is recommended. OVERALL FINAL ASSESSMENT: ??BI-RADS Category 1: Negative. ?? > Interpreting Provider: Sugar Alvarado MD on 06/03/2022 3:51 PM Narrative 06/03/2022 3:51 PM RESEARCH EPIDEMIOLOGIST EXAMINATION: BILATERAL DIGITAL SCREENING MAMMOGRAM AND BILATERAL [...] has been no significant interval change. Kacie Grigsby APRN-[facility] MAMMO ORDERABLES * PAP IG LB +HPV APTIMA REFLEX 16,18/45 (05/19/2022 4:08 PM RESEARCH EPIDEMIOLOGIST) Diagnosis [facility] ACCOUNT BILL Comment: NEGATIVE FOR INTRAEPITHELIAL LESION OR MALIGNANCY. THIS SPECIMEN WAS RESCREENED PART OF OUR BUCKLE INSPECTOR PROGRAM. Specimen Adequacy [facility] ACCOUNT BILL Comment: Satisfactory for evaluation. ??Endocervical and/or squamous metaplastic cells (endocervical component) are present. Clinician Provided ICD10 [facility] ACCOUNT BILL Comment: Z01.419 Z11.51 N95.0 Performed by [facility] ACCOUNT BILL Comment:Nohemi Garcia, Bottomer Operator (ASCP) QC Reviewed by [facility] ACCOUNT BILL Comment:Karen Sahni, Cytot echnologist (ASCP) Comment . [facility] ACCOUNT BILL Note [facility] [...] UTERINE CERVIX / Unknown 05/19/2022 4:08 PM RESEARCH EPIDEMIOLOGIST 05/20/2022 Narrative [facility] ACCOUNT BILL - 05/25/2022 4:07 PM RESEARCH EPIDEMIOLOGIST No. of containers..01 ThinPrep Vial Resulting Agency Comment Lab Testing performed at: [address] ??[place] [phone] Kacie Grigsby VALIDATION ARCHITECT-SOCIAL WORK NURSE LAB - PATHOLOGY/C YTOLOGY ORDERABLES [facility] ACCOUNT BILL [address] [place] [address] * ESTRADIOL (02/05/2021 3:01 PM CDT) Estradiol <5.0 pg/mL [facility] ACCOUNT BILL Comment: ? Adult Female: ? Follicular phase ?? 12.5 - ?? 166.0 ? Ovulation phase ?85.8 - ?? 498.0 ? Luteal phase ? 43.8 - ?? 211.0 ? Postmenopausal ? <6.0 - ?54.7 ? 1st trimester ? 215.0 - >4300.0 Benji ECLIA methodology FASTING Blood BLOOD SPECIMEN / Unknown 02/05/2021 3:01 PM CDT 02/05/2021 Narrative Resulting Agency Comment Lab Testing performed at: [facility] [address] ??[facility] [phone] Jelani Macias MD LAB - CHEMISTRY KOFI GRADY [facility] ACCOUNT BILL [address] [place] [address] * FSH + LH PANEL (02/05/2021 3:01 PM CDT) LH 28.2 mIU/mL [facility] ACCOUNT BILL Comment: ?LH Reference Range Normal Menstruating Females ? Follicular Phase ? 1.80 - 11.78 mIU /mL ? Mid-Cycle Phase ?7.59 - 89.08 mIU /mL ? Luteal Phase ? 0.56 - 14.00 mIU /mL Postmenopausal Females without HRT ?5.16-61.99 mIU/m L Males ? 0.57 - 12.07 mIU /mL ? FSH Reference Range Normal Menstruating Females ? Follicular Phase ?3.03 - 8.08 mIU /mL ? Mid-Cycles Phase ? 2.55 - 16.69 mIU /mL ? Luteal Phase ?1.38 - 5.47 mIU /mL Post Menopausal Females ? 26.72 - 133.41 mIU /mL Males ?0.95 - 11.95 mIU/ mL FSH 64.86 mIU/mL [facility] ACCOUNT BILL Comment:FASTING Blood BLOOD SPECIMEN / Unknown 02/05/2021 3:01 PM CDT 02/05/2021 Narrative Resulting Agency Comment Lab Testing performed at: [address] ??[facility] [phone] Jelani Macias MD LAB - CHEMISTRY KOFI GRADY [facility] ACCOUNT BILL [address] [place] [address] * TSH (02/05/2021 3:01 PM CDT) Pathologist [facility] TSH 2.7133 0.35 - 4.94 uIU/mL [facility] ACCOUNT BILL Comment: FASTING Blood BLOOD SPECIMEN / Unknown 02/05/2021 3:01 PM CDT 02/05/2021 Narrative Resulting Agency Comment Lab Testing performed at: [address] ??[facility] [phone] Jelani Macias MD LAB - CHEMISTRY KOFI GRADY Performing Organization Address [facility] Co de Phone Number [facility] ACCOUNT BILL [address] [place] [address] * HCG URINE QUALITATIVE - POINT OF CARE (AMB) STL (01/27/2021) [facility] HCG Qual Urine Negative Negative HCG Urine QC NEG n NEGATIVE - POSITIVE HCG Urine QC POS p NEGATIVE - POSITIVE Expiration Date 07/11/2022 Lot # [id number] Urine URINE / Unknown 01/27/2021 Jelani Macias MD LAB - POINT OF CARE ORDERABLES * CHLAMYDIA + GC + TRICH DNA AMPL (09/20/2019 4:43 PM CDT) Only the most recent of3 resultswithin the time period is included. [facility] Chlamydia trachomatis SELVIN Negative Negative [facility] ACCOUNT BILL GC DNA Probe Negative Negative [facility] ACCOUNT BILL Trichomonas vaginalis by SELVIN Negative Negative [facility] ACCOUNT BILL Microbiology ENTIRE ENDOCERVIX / Unknown 09/20/2019 4:43 PM CDT 09/20/2019 Narrative Resulting Agency Comment Lab Testing performed at: [facility] ??[facility] [phone] Jelani Macias MD LAB - MICROBIOLOGY O SCOT [facility] ACCOUNT BILL [address] [place] [address] * PAP IG LB+CT+NG+TV+HPV APTIMA RFLX 16,18/45 (09/07/2018 3:29 PM RESEARCH EPIDEMIOLOGIST) Diagnosis [facility] INSURANCE BILL Comment: NEGATIVE FOR INTRAEPITHELIAL LESION OR MALIGNANCY. THIS SPECIMEN WAS RESCREENED PART OF OUR BUCKLE INSPECTOR PROGRAM. Specimen Adequacy [facility] INSURANCE BILL Comment: Satisfactory for evaluation. ??Endocervical and/or squamous metaplastic cells (endocervical component) are present. Clinician Provided ICD10 [facility] INSURANCE BILL Comment: Z01.419 Z11.51 Z11.3 Performed by [facility] INSURANCE BILL Comment:Karlene Angel, Cyto technologist (ASCP) QC Reviewed by [facility] INSURANCE BILL Comment:Jeanine Mcfarlane, Supervisory Bottomer Operator (ASCP) Comment . [facility] INSURANCE BILL Note [facility] INSURANCE BILL Comment: The Pap smear is a screening test designed to aid in the detection of premalignant and malignant conditions of the uterine cervix. ??It is not a diagnostic procedure and should not be used as the sole means of detecting cervical cancer. ??Both false-positive and false-negative reports do occur. ? . IGLBP CPT Code Automation [facility] INSURANCE BILL Comment: This liquid based ThinPrep(R) pap test was screened with the use of an image guided system. Human papillomavirus Aptima Negative Negative [facility] INSURANCE BILL Comment: This test detects fourteen high-risk HPV types (16/18/31/33/35/39/45/ 51/52/56/58/59/66/68) without differentiation. Chlamydia trachomatis SELVIN Negative Negative [facility] INSURANCE BILL GC SELVIN Negative Negative [facility] INSURANCE BILL Trichomonas vaginalis by SELVIN Negative Negative [facility] INSURANCE BILL PART OF UTERINE CERVIX / Unknown 09/07/2018 3:29 PM RESEARCH EPIDEMIOLOGIST 09/07/2018 Narrative [facility] INSURANCE BILL - 09/12/2018 11:10 AM RESEARCH EPIDEMIOLOGIST Source.............Cervix Other..............Oral Contraceptives No. of containers..01 ThinPrep Vial Resulting Agency Comment [facility] [address] [place] [id number] Jelani Macias MD LAB - PATHOLOGY/CYTO LOGY ORDERABLES [facility] INSURANCE BILL [address] [place] [address] * MAMMO SCREENING DIGITAL IMAGE BILAT (10/01/2017 2:54 PM CDT) Anatomical Region Laterality Modality Breast Bilateral Mammography 10/01/2017 4:29 PM CDT Impressions 10/01/2017 4:30 PM CDT No mammographic evidence of malignancy in either breast. ASSESSMENT: BIRADS Category 1: Negative mammogram. RECOMMENDATION: Bilateral screening mammogram in one year. Thank you for allowing us to participate in the care of your patient. [facility] utilizes Timetric as a reminder system to notify patients of their next recommended mammogram. Narrative 10/01/2017 4:30 PM CDT EXAMINATION: Digital screening mammogram on 10/01/2017. Computer assisted detection was utilized. PRIOR: This is the patient's baseline mammogram. ??No previous breast imaging studies are available for comparison. BREAST PARENCHYMAL DENSITY: The breasts are heterogeneously dense, which may obscure small masses. FINDINGS: No suspicious masses, areas of architectural distortion or microcalcifications are evident. Jelani Macias MD MAMMO ORDERABLES * VAGINITIS PLUS (BV CA CT NG TRICH) (PO REF) (08/14/2016 9:55 AM RESEARCH EPIDEMIOLOGIST) Only the most recent of2 resultswithin the time period is included. Atopobium vaginae Low - 0 Score [facility] ACCOUNT BILL BVAB 2 Low - 0 Score [facility] ACCOUNT BILL Megashaera Low - 0 Score [facility] ACCOUNT BILL Comment: Calculate total score by adding the 3 individual bacterial vaginosis (BV) marker scores together. ??Total score is interpreted as follows: Total score 0-1: Indicates the absence of BV. Total score ?? 2: Indeterminate for BV. Additional clinical ? data should be evaluated to establish a ? diagnosis. Total score 3-6: Indicates the presence of BV. ? . This test was developed and its performance characteristics determined by [facility]. ??It has not been cleared or approved by the Food and Drug Administration. ??The FDA has determined that such clearance or approval is not necessary. Naahi albicans SELVIN Negative Negative [facility] ACCOUNT BILL Anahi glabrata SELVIN Negative Negative [facility] ACCOUNT BILL Comment: This test was developed and its performance characteristics determined by [facility]. ??It has not been cleared or approved by the Food and Drug Administration. ??The FDA has determined that such clearance or approval is not necessary. Trichomonas vaginalis by SELVIN Negative Negative [facility] ACCOUNT BILL Chlamydia Trachomatis SELVIN Negative Negative [facility] ACCOUNT BILL GC SELVIN Negative Negative [facility] ACCOUNT BILL ENTIRE VAGINA / Unknown 08/14/2016 9:55 AM RESEARCH EPIDEMIOLOGIST 08/14/2016 Narrative Resulting Agency Comment [facility] [address] ??[facility] [phone] Jelani Macias MD LAB - MICROBIOLOGY O SCOT [facility] ACCOUNT BILL [address] [place] [address] * PAP W NATHANIEL HPV HR+HPV 16/18 (PO REF LAB) (08/09/2015 12:21 PM RESEARCH EPIDEMIOLOGIST) Diagnosis [facility] INSURANCE BILL Comment:NEGATIVE FOR INTRAEP ITHELIAL LESION AND MALIGNANCY. Specimen Adequacy [facility] INSURANCE BILL Comment: Satisfactory for evaluation. ??Endocervical and/or squamous metaplastic cells (endocervical component) are present. Clinician Provided ICD10 [facility] INSURANCE BILL Comment:Z01.419 Performed by [facility] INSURANCE BILL Comment:Nirali Gavin, Cytotec hnologist (ASCP) Comment . [facility] INSURANCE BILL Note [facility] INSURANCE BILL Comment: The Pap smear is a screening test designed to aid in the detection of premalignant and malignant conditions of the uterine cervix. ??It is not a diagnostic procedure and should not be used as the sole means of detecting cervical cancer. ??Both false-positive and false-negative reports do occur. ? . IGLBP CPT Code Automation [facility] INSURANCE BILL Comment: This liquid based ThinPrep(R) pap test was screened with the use of an image guided system. Human papillomavirus Other hr types Negative Negative [facility] INSURANCE BILL Human papillomavirus 16 Negative Negative [facility] INSURANCE BILL Human papillomavirus 18 Negative Negative [facility] INSURANCE BILL Comment: This test detects fourteen high-risk HPV types: HPV16, HPV18 and twelve other high-risk types (31, 33, 35, 39, 45, 51, 52, 56, 58, 59, 66, 68) without differentiation. MICROSCOPIC CYTOLOGIC EXAMINATION OF SMEAR OF SPECIMEN FROM FEMALE GENITAL TRACT PREPARED USING PAPANICOLAOU TECHNIQUE / Unknown 08/09/2015 12:21 PM RESEARCH EPIDEMIOLOGIST 08/10/2015 4:42 AM RESEARCH EPIDEMIOLOGIST Narrative [facility] INSURANCE BILL - 08/14/2015 5:18 PM RESEARCH EPIDEMIOLOGIST Source.............Cervical;Endocervical LMP / Prev Treat...GIQ=[id number] No. of containers..01 CYTYC Thin Prep Vial Resulting Agency Comment [facility] [facility] ??[place] [phone] Jelani Macias MD LAB - PATHOLOGY/CYTO LOGY ORDERABLES [facility] INSURANCE BILL * RPR (08/06/2014 12:21 PM RESEARCH EPIDEMIOLOGIST) RPR Non Reactive Non Reactive [facility] ACCOUNT BILL Blood specimen (specimen) BLOOD SPECIMEN / Unknown 08/06/2014 12:21 PM RESEARCH EPIDEMIOLOGIST 08/06/2014 5:03 PM RESEARCH EPIDEMIOLOGIST Narrative Resulting Agency Comment [facility] [address] ??[facility] [phone] Jelani Macias MD LAB - CHEMISTRY KOFI GRADY Performing Organization Address [facility] Co de Phone Number [facility] ACCOUNT BILL * HIV-1 HIV-2 ANTIBODY (08/06/2014 12:21 PM RESEARCH EPIDEMIOLOGIST) HIV-1 Antibody O.D. Ratio <1.00 <1.00 [facility] ACCOUNT BILL Comment:Index Value: Specime n reactivity relative to the negative cutoff. HIV-1/HIV-2 Non Reactive Non Reactive [facility] ACCOUNT BILL Blood specimen (specimen) BLOOD SPECIMEN / Unknown 08/06/2014 12:21 PM RESEARCH EPIDEMIOLOGIST 08/06/2014 5:03 PM RESEARCH EPIDEMIOLOGIST Narrative Resulting Agency Comment [facility] [address] ??[facility] [phone] Jelani Macias MD LAB - CHEMISTRY KOFI GRADY Performing Organization Address [facility] de Phone Number [facility] ACCOUNT BILL * HERPES SIMPLEX 2 ANTIBODY IGG (08/06/2014 12:21 PM RESEARCH EPIDEMIOLOGIST) Herpes Simplex Virus 2 Antibody IgG Type Specific <0.91 0.00 - 0.90 index [facility] ACCOUNT BILL Comment: ?Negative ?<0.91 ?Equivocal 0.91 - 1.09 ?Positive ?>1.09 ?Note: Negative indicates no antibodies detected to ?HSV-2. Equivocal may suggest early infection. ??If ?clinically appropriate, retest at later date. 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 Blood specimen (specimen) BLOOD SPECIMEN / Unknown 08/06/2014 12:21 PM RESEARCH EPIDEMIOLOGIST 08/06/2014 5:03 PM RESEARCH EPIDEMIOLOGIST Narrative Resulting Agency Comment [facility] [place] [address] ??[facility] [phone] Jelani Macias MD LAB - CHEMISTRY KOFI GRADY Performing Organization Address [facility] Co de Phone Number [facility] ACCOUNT BILL * HEPATITIS B SURFACE ANTIGEN (08/06/2014 12:21 PM RESEARCH EPIDEMIOLOGIST) Hepatitis B Virus Surface Antigen Negative Negative [facility] ACCOUNT BILL Blood specimen (specimen) BLOOD SPECIMEN / Unknown 08/06/2014 12:21 PM RESEARCH EPIDEMIOLOGIST 08/06/2014 5:03 PM RESEARCH EPIDEMIOLOGIST Narrative Resulting Agency Comment [facility] [address] ??[facility] [phone] Jelani Macias MD LAB - CHEMISTRY KOFI GRADY Performing Organization Address [facility] de Phone Number [facility] ACCOUNT BILL * HEPATITIS C ANTIBODY (08/06/2014 12:21 PM RESEARCH EPIDEMIOLOGIST) Hepatitis C Antibody 0.2 0.0 - 0.9 [...] HCV Ab ? w/Reflex to Verification test #[id number]. Blood specimen (specimen) BLOOD SPECIMEN / Unknown 08/06/2014 12:21 PM RESEARCH EPIDEMIOLOGIST 08/06/2014 5:03 PM RESEARCH EPIDEMIOLOGIST Narrative Resulting Agency Comment [facility] [address] [facility] ??[facility] [phone] Jelani Macias MD LAB - CHEMISTRY KOFI GRADY [facility] ACCOUNT BILL * PAP IG CT+NG SELVIN+NATHANIEL HPV 16/18 (PO REF) (07/15/2012 4:00 PM RESEARCH EPIDEMIOLOGIST) Diagnosis [facility] ACCOUNT BILL Comment: NEGATIVE FOR INTRAEPITHELIAL LESION AND MALIGNANCY. CELLULAR CHANGES ASSOCIATED WITH INFLAMMATION ARE PRESENT. THIS SPECIMEN WAS RESCREENED PART OF OUR BUCKLE INSPECTOR PROGRAM. Specimen Adequacy [facility] ACCOUNT BILL Comment: Satisfactory for evaluation. ??Endocervical and/or squamous metaplastic cells (endocervical component) are present. Clinician Provided ICD9 [facility] ACCOUNT BILL Comment:V72.31 ; Routine radiology asst ecological examination Performed by [facility] ACCOUNT BILL Comment:Effie Montesinos, Cytot echnologist (ASCP) QC Reviewed by [facility] ACCOUNT BILL Comment:Lin Rodriguez Bottomer Operator (ASCP) Comment . [facility] ACCOUNT BILL Note [facility] [...] of an image guided system. Human papillomavirus Other hr types Negative Negative [facility] ACCOUNT BILL Human papillomavirus 16 Negative Negative [facility] ACCOUNT BILL Human papillomavirus 18 Negative Negative [facility] ACCOUNT BILL Comment: This test detects fourteen high-risk HPV types: HPV16, HPV18 and twelve other high-risk types (31, 33, 35, 39, 45, 51, 52, 56, 58, 59, 66, 68) without differentiation. Chlamydia trachomatis SELVIN Negative Negative [facility] ACCOUNT BILL GC DNA Probe Negative Negative [facility] ACCOUNT BILL MICROSCOPIC CYTOLOGIC EXAMINATION OF SMEAR OF SPECIMEN FROM FEMALE GENITAL TRACT PREPARED USING PAPANICOLAOU TECHNIQUE / Unknown 07/15/2012 4:00 PM RESEARCH EPIDEMIOLOGIST 07/16/2012 1:16 AM RESEARCH EPIDEMIOLOGIST Narrative [facility] ACCOUNT BILL - 07/22/2012 8:13 PM RESEARCH EPIDEMIOLOGIST No. of containers..01 CYTYC Thin Prep Vial Resulting Agency Comment [facility] [place] [address] [facility] ??Jair PASCUAL [id number] Iram Garcia MD LAB - PATHOLOGY /CYTOLOGY ORDERABLES [facility] ACCOUNT BILL Care Teams Angle Furnaceman Relationship Specialty Start Date End Date Becki Nichols MD [address] [facility] [address] [place] [address] PCP - General Family Medicine 05/15/21 [place] [address] [facility] [address] [place] [address] Mysql Developer Obstetrics and Gynecology 08/06/14
--- OUTSIDE RECORDS SUMMARY | 2024-08-08 13:54 | XMS_ITS | Clinical Summary ---
Author Organization [facility] Address [address] [facility] [place] [address] Care Team Providers Care Hris Manager Name Role Phone Sample, Jelani Grigsby MD Unavailable [phone] Becki Nichols MD Primary Care Provider + Source Comments [facility],non-owned Affiliates and Associated Physician Practices is amultiple site organization consisting of ambulatory clinics and hospital sitesin [place], [place], [place] and [place]. This disclosure is being madepursuant to the Care Everywhere program and may not contain all information available regarding this patient. Last updated 18.[facility] Allergies No known active allergies Medications * [...] Active Active Problems No known active problems Family History Medical History Relation Name Comments Arthritis Father Diabetes Father Heart Disease Father Cancer Maternal Grandfather Stroke Maternal Grandmother Cancer Paternal Grandmother Relation Name Status Comments Father Maternal Grandfather Maternal Grandmother Mother Alive Paternal Grandfather Paternal Grandmother Sister Alive Social History Tobacco Use Types Packs/Day Years [...] Comments Blood Pressure 148/110 05/19/2022 3:54 PM AUTOMOTIVE CENTER MANAGER Pulse 100 08/14/2016 9:26 AM AUTOMOTIVE CENTER MANAGER Temperature - - Respiratory Rate 18 05/19/2022 3:54 PM AUTOMOTIVE CENTER MANAGER Oxygen Saturation - - Inhaled Oxygen Concentration - - Weight 81.6 kg (180 lb) 07/20/2023 4:40 PM AUTOMOTIVE CENTER MANAGER Height 162.6 cm (5' 4 ) 05/19/2022 3:54 PM AUTOMOTIVE CENTER MANAGER Body Mass Index 30.9 05/19/2022 3:54 PM AUTOMOTIVE CENTER MANAGER Plan of Treatment Health Maintenance Due Date Last Done Comments COLOGUARD (AGES 45-75) - COLON CA SCREENING 1977 COLON MONITORING 1977 COLONOSCOPY - COLON CA SCREENING 1977 CT COLONOGRAPHY - COLON CA SCREENING 1977 Colorectal Cancer Screening 1977 FIT - COLON CA SCREENING 1977 FLEX SIG - COLON CA SCREENING 1977 LIPID TESTING 1977 DTAP/TDAP/TD VACCINES (1 - Tdap) 02/12/1996 HEPATITIS B VACCINE (1 of 3 - 19+ 3-dose series) 02/12/1996 COVID-19 VACCINE (3 - 2023- season) 2024 05/21/2023, 05/29/2022 INFLUENZA VACCINE (#1) 2024 05/21/2023, 2021 MAMMOGRAM 06/03/2024 06/03/2022, 2021, 10/01/2017 DEPRESSION SCREENING 07/12/2024 ZOSTER VACCINE (1 of 2) 2027 PAP with HPV 05/19/2027 05/19/2022, /2 01/2019, 08/09/2015, Additional history exists HEPATITIS C SCREENING Completed 08/06/2014 HIV SCREENING Completed 08/06/2014 HIB VACCINE Aged Out No longer eligi ble based on patient's age to complete this topic HPV VACCINE Aged Out No longer eligi ble based on patient's age to complete this topic MENINGOCOCCAL (Group B) VACCINE Aged Out No longer eligible based on patient's age to complete this topic MENINGOCOCCAL VACCINE Aged Out No chelsey naa eligible based on patient's age to complete this topic PNEUMOCOCCAL VACCINE Aged Out No long er eligible based on patient's age to complete this topic Procedures Procedure Name Priority Date/Time Associated Diagnosis Comments MAMMO BILAT SCREENING W JAJA Routine 06/03/2022 3:16 PM AUTOMOTIVE CENTER MANAGER Well woman exam PAP IG LB +HPV APTIMA REFLEX 16,18/45 Routine 05/19/2022 4:08 PM AUTOMOTIVE CENTER MANAGER Well woman exam Special screening examination for human papillomavirus (HPV) HEPATITIS C ANTIBODY Routine 08/06/2014 12:21 PM AUTOMOTIVE CENTER MANAGER Screen for STD (sexually transmitted disease) HIV-1 HIV-2 ANTIBODY Routine 08/06/2014 12:21 PM AUTOMOTIVE CENTER MANAGER Screen for STD (sexually transmitted disease) from Last 3 Months or Most Recently Relevant to Health Maintenance Results * MAMMO BILAT SCREENING W JAJA (06/03/2022 3:16 PM AUTOMOTIVE CENTER MANAGER) Anatomical Region Laterality Modality Breast Bilateral Mammography 06/03/2022 3:49 PM AUTOMOTIVE CENTER MANAGER Impressions 06/03/2022 3:51 PM AUTOMOTIVE CENTER MANAGER : Annual screening mammography is recommended. OVERALL FINAL ASSESSMENT: ??BI-RADS Category 1: Negative. ?? > Interpreting Provider: Sugar Alvarado MD on 06/03/2022 3:51 PM Narrative 06/03/2022 3:51 PM AUTOMOTIVE CENTER MANAGER EXAMINATION: BILATERAL DIGITAL SCREENING MAMMOGRAM AND BILATERAL [...] been no significant interval change. Kacie Grigsby DCS ENGINEER-VP MARKETING MAMMO ORDERABLES * PAP IG LB +HPV APTIMA REFLEX 16,18/45 (05/19/2022 4:08 PM AUTOMOTIVE CENTER MANAGER) Diagnosis [facility] ACCOUNT BILL Comment: NEGATIVE FOR INTRAEPITHELIAL LESION OR MALIGNANCY. THIS SPECIMEN WAS RESCREENED PART OF OUR RAISE DRILL OPERATOR PROGRAM. Specimen Adequacy [facility] ACCOUNT BILL Comment: Satisfactory for evaluation. ??Endocervical and/or squamous metaplastic cells (endocervical component) are present. Clinician Provided ICD10 [facility] ACCOUNT BILL Comment: Z01.419 Z11.51 N95.0 Performed by [facility] ACCOUNT BILL Comment:Nohemi Garcia, Wet Sander (ASCP) QC Reviewed by [facility] ACCOUNT BILL Comment:Karen Sahni, Cytot echnologist (ASC) Comment . [facility] ACCOUNT BILL Note [facility] [...] UTERINE CERVIX / Unknown 05/19/2022 4:08 PM AUTOMOTIVE CENTER MANAGER 05/20/2022 Narrative [facility] ACCOUNT BILL - 05/25/2022 4:07 PM AUTOMOTIVE CENTER MANAGER No. of containers..01 ThinPrep Vial Resulting Agency Comment Lab Testing performed at: [facility] [address] [facility] ??Jair W [id number] Kacie Grigsby DCS ENGINEER-VP MARKETING LAB - PATHOLOGY/C YTOLOGY ORDERABLES Performing Organization Address City/[facility] Co de Phone Number [facility] ACCOUNT BILL [address] [place] [address] * HIV-1 HIV-2 ANTIBODY (08/06/2014 12:21 PM AUTOMOTIVE CENTER MANAGER) HIV-1 Antibody O.D. Ratio <1.00 <1.00 [facility] ACCOUNT BILL Comment:Index Value: Specime n reactivity relative to the negative cutoff. HIV-1/HIV-2 Non Reactive Non Reactive [facility] ACCOUNT BILL Blood specimen (specimen) BLOOD SPECIMEN / Unknown 08/06/2014 12:21 PM AUTOMOTIVE CENTER MANAGER 08/06/2014 5:03 PM AUTOMOTIVE CENTER MANAGER Narrative Resulting Agency Comment [facility] [place] [address] [facility] ??[facility] [id number] Jelani Macias MD LAB - CHEMISTRY KOFI GRADY Performing Organization Address City/[facility]/ZIP Co de Phone Number [facility] ACCOUNT BILL * HEPATITIS C ANTIBODY (08/06/2014 12:21 PM AUTOMOTIVE CENTER MANAGER) Hepatitis C Antibody 0.2 0.0 - 0.9 [...] HCV Ab ? w/Reflex to Verification test #[id number]. Blood specimen (specimen) BLOOD SPECIMEN / Unknown 08/06/2014 12:21 PM AUTOMOTIVE CENTER MANAGER 08/06/2014 5:03 PM AUTOMOTIVE CENTER MANAGER Narrative Resulting Agency Comment [facility] [address] [facility] ??[place] [phone] Jelani Macias MD LAB - CHEMISTRY KOFI GRADY [facility] ACCOUNT BILL from Last 3 Months or Most Recently Relevant to Health Maintenance Care Teams Hris Manager Relationship Specialty Start Date End Date Becki Nichols MD [address] [place] [address] PCP - General Family Medicine 05/15/21 [place] [address] [facility] [address] [place] [address] Professor Of Special Education Obstetrics and Gynecology 08/06/14
--- OUTSIDE RECORDS SUMMARY | 2024-08-08 13:54 | XMS_ITS | Clinical Summary ---
Author Organization [facility] Kyler cunningham Storm Address [address] [place] [address] Care Team Providers Care Process Planner Name Role Phone Becki Nichols MD Primary Care Provider [phone] Allergies Active Allergy Reactions Criticality Noted Date Comments Sulfa (Sulfonamide Antibiotics) Nausea and Vomiting Low 02/01/2024 Medications estradiol-noreth indrone acet (COMBIPATCH) 0.05-0.14 mg/24 hr patch Apply 1 Patch to skin as directed. 06/08/2022 Active FLUoxetine (PROzac) 40 mg capsule Take 60 mg by mouth. Active gabapentin (NEURONTIN) 300 mg capsule 09/17/2019 Active LORazepam (ATIVAN) 1 mg tablet Take 1 mg by mouth. Active metoprolol tartrate (LOPRESSOR) 25 mg tablet Take 25 mg by mouth daily. Taking half a pill daily 04/06/2022 Active methylphenidate HCl (RITALIN) 20 mg tablet TAKE 1 & 1/2 TABLET BY MOUTH TWICE A DAY NEEDED 05/04/2022 Active Active Problems No known active problems Encounters Date Type Department Care Team Description 08/08/2024 1:15 PM RN MEDICAL SURGICAL Office Visit [facility] Oncology and Hematology - [place] [address] [address] Murray Lozano MD Arrived 08/02/2024 External Device Data [facility] ABSTRACTION Provider, Abstract 08/01/2024 External Device Data [facility] ABSTRACTION Provider, Abstract 07/26/2024 External Device Data [facility] ABSTRACTION Provider, Abstract from Last 3 Months Family History Medical History Relation Name Comments Diabetes Father Heart Disease Father Melanoma Father Pacemaker Father Skin Cancer Father Heart Disease Mother Hypertension Mother No Known Problems Sister Relation Name Status Comments Father Alive Mother Alive Sister Alive Social History Tobacco Use Types Packs/Day Years Used Date Smoking Tobacco: Never Smokeless Tobacco: Never Tobacco Cessation:Counseling Given: Not Answered Alcohol Use Standard Drinks/Week Comments Yes 0 (1 standard drink = 0.6 oz pur e alcohol) socially Comments Unknown Sex and Gender Information Value Date Recorded Sex Assigned at Not on file Legal Sex Female 2:00 PM RN MEDICAL SURGICAL Gender Identity Not on file Sexual Orientation Not on file Last Filed Vital Signs Vital Sign Reading Time Taken Comments Blood Pressure 114/77 08/08/2024 1:40 PM RN MEDICAL SURGICAL Pulse 74 08/08/2024 1:40 PM RN MEDICAL SURGICAL Temperature 36.7 ??C (98 ??F) 08/08/2024 1:40 PM RN MEDICAL SURGICAL Respiratory Rate 16 08/08/2024 1:40 PM RN MEDICAL SURGICAL Oxygen Saturation 97% 08/08/2024 1:40 PM RN MEDICAL SURGICAL Inhaled Oxygen Concentration - - Weight 81.8 kg (180 lb 6.4 oz) 08/08/2024 1:40 P M RN MEDICAL SURGICAL Height 162.6 cm (5' 4 ) 08/04/2022 10:22 AM RN MEDICAL SURGICAL Body Mass Index 30.97 08/04/2022 10:22 AM RN MEDICAL SURGICAL Plan of Treatment Health Maintenance Due Date Last Done Comments Pre-Diabetes and Diabetes Screening 1977 DTAP/TDAP/TD VACCINES (1 - Tdap) 02/12/1996 HEPATITIS B VACCINES (1 of 3 - 19+ 3-dose series) 02/12/1996 CERVICAL CANCER SCREENING 2007 COLORECTAL SCREENING 2022 Colorectal Cancer Screening 2022 FIT-DNA Q 3 years 2022 FIT/FOBT Q 1 year 2022 Flex Sig/CT Colonography Q 5 years 2022 BREAST CANCER SCREENING 06/03/2023 06/03/2022, 05/15 INFLUENZA VACCINE (#1) 2024 Preventative Visit- Commercial 07/12/2024 0 07/19/2023, 05/19/2022, 01/27/2021, Additional history exists COVID-19 Vaccine Completed 05/16/2024, 04/2023, 05/29/2022 Insurance [facility] BLUE ACCESS/TRUE BLUE PPO Care Teams Process Planner Relationship Specialty Start Date End Date Becki Nichols MD PCP - General Family Practice 08/04/22
== END 2024-08-08 13:16 | disposition home or self-care (01) ==
LOC: ANHLAB 13:16
PROVIDERS: PCP Family Medicine; Visit Provider Internal Medicine Hematology & Oncology
DX: D47.3 Essential (hemorrhagic) thrombocythemia (principal)
CPT/HCPCS: 36415; 80047; 85025

== ENCOUNTER 2025-02-06 12:56 | Outpatient (CLI) | payer BC, SELFPAY ==
--- OUTSIDE RECORDS SUMMARY | 2025-02-06 13:05 | XMS_ITS | Clinical Summary ---
Author Organization [facility] Address [address] [facility] [place] [address] Care Team Providers Care Training Professional Name Role Phone Sample, Jelani Grigsby MD Unavailable [phone] Becki Nichols MD Primary Care Provider + Source Comments [facility],non-owned Affiliates and Associated Physician Practices is amultiple site organization consisting of ambulatory clinics and hospital sitesin [place], [place], [place] and [place]. This disclosure is being madepursuant to the Care Everywhere program and may not contain all information available regarding this patient. Last updated 18.[facility] Allergies No known active allergies Medications * Be aware that medications may not be up to date on this document. Alwaysverify current medications with the patient. FLUoxetine (PROzac) 40 MG capsule Take 60 mg by mouth twice daily, before 1 meal & at bedtime. Active LORazepam (ATIVAN) 1 MG tablet Take 1 mg by mouth at bedtime Active gabapentin (NEURONTIN) 300 MG capsule 0 Active methylphenidate (Ritalin) 20 MG tablet TAKE 1 & 1/2 TABLET BY MOUTH TWICE A DAY NEEDED 2 Active metoprolol tartrate IR (Lopressor) 25 MG tablet Take 1 (one) tablet by mouth 2 times daily 2 Active estradiol-noret hindrone (Combipatch) 0.05-0.14 MG/DAY patchIndication s:Estrogen Deficiency (Inactive),Vaso motor Symptoms of Menopause Apply 1 patch to skin Two times a week Reasons: ESTROGEN DEFICIENCY (INACTIVE), Symptoms of Menopause 24 patch 4 4 Active Active Problems No known active problems [...] Recorded Patient Health Questionnaire-2 Score 4 07/16/2023 Comments No Sex and Gender Information Value Date Recorded Sex Assigned at Female 01/21/2021 3:02 PM CDT Legal Sex Female 9:31 AM COMMERCIAL RETOUCHER Gender Identity Female 01/21/2021 3:02 PM CDT Sexual Orientation Not on file Last Filed Vital Signs Vital Sign Reading Time Taken Comments Blood Pressure 148/110 05/19/2022 3:54 PM COMMERCIAL RETOUCHER Pulse 100 08/14/2016 9:26 AM COMMERCIAL RETOUCHER Temperature - - Respiratory Rate 18 05/19/2022 3:54 PM COMMERCIAL RETOUCHER Oxygen Saturation - - Inhaled Oxygen Concentration - - Weight 81.6 kg (180 lb) 07/20/2023 4:40 PM COMMERCIAL RETOUCHER Height 162.6 cm (5' 4) 05/19/2022 3:54 PM COMMERCIAL RETOUCHER Body Mass Index 30.9 05/19/2022 3:54 PM COMMERCIAL RETOUCHER Plan of Treatment Health Maintenance Due Date [...] - 19+ 3-dose series) 02/12/1996 COVID-19 VACCINE ( - season) 2024 05/21/2023, 05/29/2022 MAMMOGRAM 06/03/2024 06/03/2022, 1110/2020, 10/01/2017 DEPRESSION SCREENING 07/12/2024 INFLUENZA VACCINE (#1) 2025 05/21/2023, 2021 ZOSTER VACCINE (1 of 2) 2027 PAP with HPV 05/19/2027 05/19/2022, 02/2 01/2019, 08/09/2015, Additional history exists HEPATITIS C SCREENING Completed 08/06/2014 HIV SCREENING Completed 08/06/2014 HIB VACCINE Aged Out No longer eligi ble based on patient's age to complete this topic HPV VACCINE Aged Out No longer eligi ble based on patient's age to complete this topic MENINGOCOCCAL (Group B) VACCINE SHARED DECISION-MAKING Aged Out No longer eligible based on patient's age to complete this topic MENINGOCOCCAL GROUPS A/C/Y/W VACCINE Aged Out No longer eligible based on patient's age to complete this topic PNEUMOCOCCAL VACCINE Aged Out No long er eligible based on patient's age to complete this topic Procedures Procedure Name Priority Date/Time Associated Diagnosis Comments MAMMO BILAT SCREENING W JAJA Routine 06/03/2022 3:16 PM COMMERCIAL RETOUCHER Well woman exam PAP IG LB +HPV APTIMA REFLEX 16,18/45 Routine 05/19/2022 4:08 PM COMMERCIAL RETOUCHER Well woman exam Special screening examination for human papillomavirus (HPV) HEPATITIS C ANTIBODY Routine 08/06/2014 12:21 PM COMMERCIAL RETOUCHER Screen for STD (sexually transmitted disease) HIV-1 HIV-2 ANTIBODY Routine 08/06/2014 12:21 PM COMMERCIAL RETOUCHER Screen for STD (sexually transmitted disease) from Last 3 Months or Most Recently Relevant to Health Maintenance Results * MAMMO BILAT SCREENING W JAJA (06/03/2022 3:16 PM COMMERCIAL RETOUCHER) Anatomical Region Laterality Modality Breast Bilateral Mammography 06/03/2022 3:49 PM COMMERCIAL RETOUCHER Impressions 06/03/2022 3:51 PM COMMERCIAL RETOUCHER : Annual screening mammography is recommended. OVERALL FINAL ASSESSMENT: BI-RADS Category 1: Negative. > Interpreting Provider: Sugar Alvarado MD on 06/03/2022 3:51 PM Narrative 06/03/2022 3:51 PM COMMERCIAL RETOUCHER EXAMINATION: BILATERAL DIGITAL SCREENING MAMMOGRAM AND BILATERAL BREAST TOMOSYNTHESIS HISTORY: Screening. COMPARISON: Serial examinations dating back to 10/01/2017 TECHNIQUE: BILATERAL digital breast tomosynthesis (DBT) and synthetic 2D digital mammogram images were obtained (bilateral craniocaudal and mediolateral oblique projections) including computer aided detection (CAD.) BREAST PARENCHYMAL COMPOSITION:Category C: The breasts are heterogeneously dense which may obscure small masses. MAMMOGRAM FINDINGS: There is no suspicious finding in either breast. Overall, there has been no significant interval change. Kacie Grigsby MRI SUPERVISOR-TRAFFIC CHECKER MAMMO ORDERABLES Final Re sult * PAP IG LB +HPV APTIMA REFLEX 16,18/45 (05/19/2022 4:08 PM COMMERCIAL RETOUCHER) Diagnosis [facility] ACCOUNT BILL Comment: NEGATIVE FOR INTRAEPITHELIAL LESION OR MALIGNANCY. THIS SPECIMEN WAS RESCREENED PART OF OUR ESTATE PLANNING PARALEGAL PROGRAM. Specimen Adequacy [facility] ACCOUNT BILL Comment: Satisfactory for evaluation. Endocervical and/or squamous metaplastic cells (endocervical component) are present. Clinician Provided ICD10 [facility] ACCOUNT BILL Comment: Z01.419 Z11.51 N95.0 Performed by [facility] ACCOUNT BILL Comment:Nohemi Garcia, Mammal Keeper (ASCP) QC Reviewed by [facility] ACCOUNT BILL Comment:Karen Sahni, Cytot echnologist (ASCP) Comment . [facility] ACCOUNT BILL Note [facility] ACCOUNT BILL Comment: The Pap smear is a screening test designed to aid in the detection of premalignant and malignant conditions of the uterine cervix. It is not a diagnostic procedure and should not be used as the sole means of detecting cervical cancer. Both false-positive and false-negative reports do occur. . IGLBP CPT Code Automation [facility] ACCOUNT [...] UTERINE CERVIX / Unknown 05/19/2022 4:08 PM COMMERCIAL RETOUCHER 05/20/2022 Narrative [facility] ACCOUNT BILL - 05/25/2022 4:07 PM COMMERCIAL RETOUCHER No. of containers..01 ThinPrep Vial Resulting Agency Comment Lab Testing performed at: [facility] [place] [id number] Kacie Grigsby MRI SUPERVISOR-TRAFFIC CHECKER LAB - PATHOLOGY/CYTOLOGY ORDERABLES Final Result [facility] ACCOUNT BILL [address] [place] [address] * HIV-1 HIV-2 ANTIBODY (08/06/2014 12:21 PM COMMERCIAL RETOUCHER) HIV-1 Antibody O.D. Ratio <1.00 <1.00 [facility] ACCOUNT BILL Comment:Index Value: Specime n reactivity relative to the negative cutoff. HIV-1/HIV-2 Non Reactive Non Reactive [facility] ACCOUNT BILL Blood specimen (specimen) BLOOD SPECIMEN / Unknown 08/06/2014 12:21 PM COMMERCIAL RETOUCHER 08/06/2014 5:03 PM COMMERCIAL RETOUCHER Narrative Resulting Agency Comment [facility] [place] [address] [facility] [phone] [place] Jelani Macias MD LAB - CHEMISTRY ORDERABLES Fi nal Result Performing Organization Address City/[facility]/ZIP Co de Phone Number [facility] ACCOUNT BILL [address] [place] [address] * HEPATITIS C ANTIBODY (08/06/2014 12:21 PM COMMERCIAL RETOUCHER) Hepatitis C Antibody 0.2 0.0 - 0.9 s/co ratio [facility] ACCOUNT BILL Comment: Negative: < 0.8 Indeterminate: 0.8 - 0.9 Positive: > 0.9 . In order to reduce the incidence of a false positive result, the CDC recommends that all s/co ratios between 1.0 and 10.9 be confirmed by a more specific supplemental or PCR testing. [facility] w/Reflex to Verification test #[id number]. Blood specimen (specimen) BLOOD SPECIMEN / Unknown 08/06/2014 12:21 PM COMMERCIAL RETOUCHER 08/06/2014 5:03 PM COMMERCIAL RETOUCHER Narrative Resulting Agency Comment [facility] [place] [address] [facility] [id number] us Jelani Macias MD LAB - CHEMISTRY ORDERABLES Fi nal Result [facility] ACCOUNT BILL [address] [place] [address] from Last 3 Months or Most Recently Relevant to Health Maintenance Insurance [employer] Member Subscriber Plan / Payer (Ef fective 2019-Present) Name:Sohail Wall Relation to Subscriber:Self Name:Sohail Wall Payer ID:[id number] (NAIC) Type:PPO Address: [place] [phone] [employer] Care Teams Training Professional Relationship Specialty Start Date End Date Becki Nichols MD [address] [facility] [address] [place] [address] PCP - General Family Medicine 05/15/21 Gilber[place] [address] [facility] [address] [place] [address] Alterations Sewer Obstetrics and Gynecology 08/06/14
--- OUTSIDE RECORDS SUMMARY | 2025-02-06 13:05 | XMS_ITS | Clinical Summary ---
Author Organization [facility] marisa [facility] Address [address] [place] [address] Care Team Providers Care Field Education Coordinator Name Role Phone Becki Nichols MD Primary Care Provider [phone] Allergies Active Allergy Reactions Criticality Noted Date [...] Encounters Date Type Department Care Team Description 01/24/2025 External Device Data [facility] ABSTRACTION Provider, Abstract 01/23/2025 External Device Data [facility] ABSTRACTION Provider, Abstract 12/26/2024 External Device Data [facility] ABSTRACTION Provider, Abstract 11/30/2024 External Device Data [facility] ABSTRACTION Provider, Abstract 11/29/2024 External Device Data [facility] ABSTRACTION Provider, Abstract 11/28/2024 External Device Data [facility] ABSTRACTION Provider, Abstract [...] on file Legal Sex Female 2:00 PM OCCUPATIONAL THERAPY ASSIST Gender Identity Not on file Sexual Orientation Not on file Last Filed Vital Signs Vital Sign Reading Time Taken Comments Blood Pressure 114/77 08/08/2024 1:40 PM OCCUPATIONAL THERAPY ASSIST Pulse 74 08/08/2024 1:40 PM OCCUPATIONAL THERAPY ASSIST Temperature 36.7 C (98 F) 08/08/2024 1:40 PM OCCUPATIONAL THERAPY ASSIST Respiratory Rate 16 08/08/2024 1:40 PM OCCUPATIONAL THERAPY ASSIST Oxygen Saturation 97% 08/08/2024 1:40 PM OCCUPATIONAL THERAPY ASSIST Inhaled Oxygen Concentration - - Weight 81.8 kg (180 lb 6.4 oz) 08/08/2024 1:40 P M OCCUPATIONAL THERAPY ASSIST Height 162.6 cm (5' 4) 08/04/2022 10:22 AM OCCUPATIONAL THERAPY ASSIST Body Mass Index 30.97 08/04/2022 10:22 AM OCCUPATIONAL THERAPY ASSIST Plan of Treatment Upcoming Encounters Date Type Department Care Team (Late st Contact Info) Description 02/06/2025 1:15 PM CDT Office Visit [facility] Oncology and Hematology - [place] [address] [facility] [address] [place] [address] Murray Lozano MD [address] [facility] [address] [place] [address] Health Maintenance Due Date Last Done Comments Pre-Diabetes and Diabetes Screening 1977 DTAP/TDAP/TD VACCINES (1 - Tdap) 02/12/1996 HEPATITIS B VACCINES (1 of 3 - 19+ 3-dose series) 02/12/1996 HPV/Cotest (21-29) 1998 CERVICAL CANCER SCREENING 2007 HPV/Cotest (30-65) 2007 PAP SMEAR 2007 COLORECTAL SCREENING 2022 Colorectal Cancer Screening 2022 FIT-DNA Q 3 years 2022 FIT/FOBT Q 1 year 2022 Flex Sig/CT Colonography Q 5 years 2022 BREAST CANCER SCREENING 06/03/2023 06/03/20, 06/03/2022, 05/15/2021 INFLUENZA VACCINE (#1) 2025 COVID-19 Vaccine Completed 05/16/2024, 04/2023, 05/29/2022 Insurance [facility] BLUE ACCESS/TRUE BLUE PPO Care Teams Field Education Coordinator Relationship Specialty Start Date End Date Becki Nichols MD PCP - General Family Practice 08/04/22
[2025-02-06 13:15] LABS: Hematocrit 40.7 % (37.0-47.0); Hemoglobin 13.6 g/dL (12.0-15.0); Immature Granulocyte Percent A 0.4 % (0-0.5); Lymphocytes Absolute Auto 1.95 K/mm3 (0.9-3.2); Mean Corpuscular HGB Conc 33.4 g/dl (32-36); Mean Corpuscular Hemoglobin 31.6 pg (26-34); Mean Corpuscular Volume 94.4 fl (80-100); Nucleated Red Blood Cells Absolute Auto 0.000 K/mm3 (0.0-0.012); Nucleated Red Blood Cells Perc 0.0 % (0.0-0.2); Platelet Count Result 409 k/mm3 (150-375); Red Blood Count 4.31 M/mm3 (4.2-5.4); White Blood Count 11.1 K/mm3 (4.5-10.0)
[2025-02-07 10:55] LABS: Blood Urea Nitrogen 8 mg/dL (8-26); Carbon Dioxide 23 mmol/L (22-30); Chloride 105 mmol/L (98-109); Estimated Glomerular Filt Rate 53; Glucose 113 mg/dL (70-105); Ionized Calcium (POC) 1.11 mmol/L (1.11-1.31); Potassium 3.8 mmol/L (3.5-4.9); Sodium 142 mmol/L (138-146)
== END 2025-02-06 12:57 | disposition home or self-care (01) ==
LOC: ANHLAB 12:56
PROVIDERS: PCP Family Medicine; Visit Provider Internal Medicine Hematology & Oncology
DX: D47.3 Essential (hemorrhagic) thrombocythemia (principal)
CPT/HCPCS: 36415; 80047; 85025

== ENCOUNTER 2025-02-19 15:19 | Outpatient (CLI) | payer BC, SELFPAY ==
--- OUTSIDE RECORDS SUMMARY | 2025-02-19 15:27 | XMS_ITS | Clinical Summary ---
Author Organization [facility] Address [address] [place] [address] Care Team Providers Care Chyron Operator Name Role Phone Sample, Jelani Grigsby MD Unavailable [phone] Becki Nichols MD Primary Care Provider + Source Comments [facility],non-owned Affiliates and Associated Physician Practices is amultiple site organization consisting of ambulatory clinics and hospital sitesin [place], [place], [place] and [place]. This disclosure is being madepursuant to the Care Everywhere program and may not contain all information available regarding this patient. Last updated 18.[facility] Allergies No known active allergies Medications * [...] PM CDT Legal Sex Female 9:31 AM EQUAL OPPORTUNITY SPECIALIST Gender Identity Female 01/21/2021 3:02 PM CDT Sexual Orientation Not on file Last Filed Vital Signs Vital Sign Reading Time Taken Comments Blood Pressure 148/110 05/19/2022 3:54 PM EQUAL OPPORTUNITY SPECIALIST Pulse 100 08/14/2016 9:26 AM EQUAL OPPORTUNITY SPECIALIST Temperature - - Respiratory Rate 18 05/19/2022 3:54 PM EQUAL OPPORTUNITY SPECIALIST Oxygen Saturation - - Inhaled Oxygen Concentration - - Weight 81.6 kg (180 lb) 07/20/2023 4:40 PM EQUAL OPPORTUNITY SPECIALIST Height 162.6 cm (5' 4) 05/19/2022 3:54 PM EQUAL OPPORTUNITY SPECIALIST Body Mass Index 30.9 05/19/2022 3:54 PM EQUAL OPPORTUNITY SPECIALIST Plan of Treatment Health Maintenance Due Date [...] SCREENING W JAJA Routine 06/03/2022 3:16 PM EQUAL OPPORTUNITY SPECIALIST Well woman exam PAP IG LB +HPV APTIMA REFLEX 16,18/45 Routine 05/19/2022 4:08 PM EQUAL OPPORTUNITY SPECIALIST Well woman exam Special screening examination for human papillomavirus (HPV) HEPATITIS C ANTIBODY Routine 08/06/2014 12:21 PM EQUAL OPPORTUNITY SPECIALIST Screen for STD (sexually transmitted disease) HIV-1 HIV-2 ANTIBODY Routine 08/06/2014 12:21 PM EQUAL OPPORTUNITY SPECIALIST Screen for STD (sexually transmitted disease) from Last 3 Months or Most Recently Relevant to Health Maintenance Results * MAMMO BILAT SCREENING W JAJA (06/03/2022 3:16 PM EQUAL OPPORTUNITY SPECIALIST) Anatomical Region Laterality Modality Breast Bilateral Mammography 06/03/2022 3:49 PM EQUAL OPPORTUNITY SPECIALIST Impressions 06/03/2022 3:51 PM EQUAL OPPORTUNITY SPECIALIST : Annual screening mammography is recommended. OVERALL FINAL ASSESSMENT: BI-RADS Category 1: Negative. > Interpreting Provider: Sugar Alvarado MD on 06/03/2022 3:51 PM Narrative 06/03/2022 3:51 PM EQUAL OPPORTUNITY SPECIALIST EXAMINATION: BILATERAL DIGITAL SCREENING MAMMOGRAM AND [...] been no significant interval change. Kacie Grigsby PRECIPITATION EQUIPMENT TENDER-BONDING MACHINE TENDER MAMMO ORDERABLES Final Re sult * PAP IG LB +HPV APTIMA REFLEX 16,18/45 (05/19/2022 4:08 PM EQUAL OPPORTUNITY SPECIALIST) Diagnosis [facility] ACCOUNT BILL Comment: NEGATIVE FOR INTRAEPITHELIAL LESION OR MALIGNANCY. THIS SPECIMEN WAS RESCREENED PART OF OUR STEEL DIE PRINTER PROGRAM. Specimen Adequacy [facility] ACCOUNT BILL Comment: Satisfactory for evaluation. Endocervical and/or squamous metaplastic cells (endocervical component) are present. Clinician Provided ICD10 [facility] ACCOUNT BILL Comment: Z01.419 Z11.51 N95.0 Performed by [facility] ACCOUNT BILL Comment:Nohemi Garcia, Orthoptist (ASCP) QC Reviewed by [facility] ACCOUNT [...] UTERINE CERVIX / Unknown 05/19/2022 4:08 PM EQUAL OPPORTUNITY SPECIALIST 05/20/2022 Narrative [facility] ACCOUNT BILL - 05/25/2022 4:07 PM EQUAL OPPORTUNITY SPECIALIST No. of containers..01 ThinPrep Vial Resulting Agency Comment Lab Testing performed at: [facility] [place] [id number] Kacie Grigsby PRECIPITATION EQUIPMENT TENDER-BONDING MACHINE TENDER LAB - PATHOLOGY/CYTOLOGY ORDERABLES Final Result [facility] ACCOUNT BILL [address] [place] [address] * HIV-1 HIV-2 ANTIBODY (08/06/2014 12:21 PM EQUAL OPPORTUNITY SPECIALIST) HIV-1 Antibody O.D. Ratio <1.00 <1.00 [facility] ACCOUNT BILL Comment:Index Value: Specime n reactivity relative to the negative cutoff. HIV-1/HIV-2 Non Reactive Non Reactive [facility] ACCOUNT BILL Blood specimen (specimen) BLOOD SPECIMEN / Unknown 08/06/2014 12:21 PM EQUAL OPPORTUNITY SPECIALIST 08/06/2014 5:03 PM EQUAL OPPORTUNITY SPECIALIST Narrative Resulting Agency Comment [facility] [place] [address] [facility] [id number] us Jelani Macias MD LAB - CHEMISTRY ORDERABLES Fi nal Result Performing Organization Address City/[facility]/ZIP Co de Phone Number [facility] ACCOUNT BILL [address] [place] [address] * HEPATITIS C ANTIBODY (08/06/2014 12:21 PM EQUAL OPPORTUNITY SPECIALIST) Hepatitis C Antibody 0.2 0.0 - 0.9 s/co ratio [facility] ACCOUNT BILL Comment: Negative: < 0.8 Indeterminate: 0.8 - 0.9 Positive: > 0.9 . In order to reduce the incidence of a false positive result, the CDC recommends that all s/co ratios between 1.0 and 10.9 be confirmed by a more specific supplemental or PCR testing. [facility] Ab w/Reflex to Verification test #[id number]. Blood specimen (specimen) BLOOD SPECIMEN / Unknown 08/06/2014 12:21 PM EQUAL OPPORTUNITY SPECIALIST 08/06/2014 5:03 PM EQUAL OPPORTUNITY SPECIALIST Narrative Resulting Agency Comment [facility] [address] [facility] [phone] us Jelani Macias MD LAB - CHEMISTRY ORDERABLES Fi nal Result [facility] ACCOUNT BILL [address] [place] [address] from Last 3 Months or Most Recently Relevant to Health Maintenance Insurance [employer] Member Subscriber Plan / Payer (Ef fective 2019-Present) Name:Sohail Wall Relation to Subscriber:Self Name:Sohail Wall Payer ID:[id number] (NAIC) Type:PPO Address: [place] [phone] ANTHEM Care Teams Chyron Operator Relationship Specialty Start Date End Date Becki Nichols MD [address] [facility] [address] [place] [address] PCP - General Family Medicine 05/15/21 Gilber[place], [place] [address] [facility] [address] [place] [address] Type Disk Quality Control Supervisor Obstetrics and Gynecology 08/06/14
--- OUTSIDE RECORDS SUMMARY | 2025-02-19 15:27 | XMS_ITS | Clinical Summary ---
Author Organization [facility] Kyler cunningham [address] Address [address] [place] [address] Care Team Providers Care Fermenting Cellars Receiver Name Role Phone Saurav Jim MD Primary Care Provider [phone] Allergies Active Allergy Reactions Criticality Noted Date [...] Encounters Date Type Department Care Team Description 02/15/2025 Abstract [facility] Oncology and Hematology - [address] [place] [address] Murray Lozano MD 02/13/2025 External Device Data ST[facility] ABSTRACTION Provider, Abstract 02/07/2025 Orders Only [facility] Oncology and Hematology - [address] [place] [address] Murray Lozano MD 02/06/2025 1:15 PM CDT Office Visit [facility] Oncology and Hematology - [address] [place], [place] [phone] Murray Lozano MD Essential thrombocytosis (CMS/HCC) (Primary Dx) 01/24/2025 External Device Data ST[facility] ABSTRACTION Provider, [...] on file Legal Sex Female 2:00 PM ENGINE TESTER Gender Identity Not on file Sexual Orientation Not on file Last Filed Vital Signs Vital Sign Reading Time Taken Comments Blood Pressure 144/96 02/06/2025 1:24 PM CDT Pulse 72 02/06/2025 1:21 PM CDT Temperature 36.7 C (98.1 F) 02/06/2025 1:21 PM CDT Respiratory Rate 16 02/06/2025 1:21 PM CDT Oxygen Saturation 97% 02/06/2025 1:21 PM CDT Inhaled Oxygen Concentration - - Weight 79 kg (174 lb 3.2 oz) 02/06/2025 1:21 PM CDT Height 162.6 cm (5' 4) 08/04/2022 10:22 AM ENGINE TESTER Body Mass Index 29.9 08/04/2022 10:22 AM ENGINE TESTER Plan of Treatment Upcoming Encounters Date Type Department Care Team (Late st Contact Info) Description 02/28/2025 4:30 PM CDT Telephone Check Up [facility] Oncology and Hematology - [address] [place] [address] Murray Lozano MD [address] [facility] [address] [place] [address] Health Maintenance Due Date Last [...] 5 years 2022 BREAST CANCER SCREENING 06/03/2023 06/03/20 22, 06/03/2022, 05/15/2021 Preventative Visit- Commercial 07/12/2024 0 07/19/2023, 05/19/2022, 01/27/2021, Additional history exists INFLUENZA VACCINE (#1) 2025 COVID-19 Vaccine Completed 05/16/2024, 04/2023, 05/29/2022 Procedures Procedure Name Priority Date/Time Associated Diagnosis Comments BASIC METABOLIC PANEL Routine 02/06/2025 2:26 PM CDT CBC WITH AUTODIFFERENTIAL Routine 2024 12:53 PM CDT from Last 3 Months Results * BASIC METABOLIC PANEL (02/06/2025 2:26 PM CDT) Blood Murray Lozano MD CHEMISTRY ORDERABLES Final Resu lt * CBC WITH AUTODIFFERENTIAL (02/06/2025 12:53 PM CDT) Blood us Murray Lozano MD HEMATOLOGY ORDERABLES Final Res ult from Last 3 Months Insurance [employer] BLUE ACCESS/TRUE BLUE PPO Care Teams Fermenting Cellars Receiver Relationship Specialty Start Date End Date Saurav Jim MD [address] [place] [address] PCP - General Family Practice 02/06/25
[2025-02-19 16:58] LABS: CRP < 0.5 mg/dL (<1.0)
== END 2025-02-19 15:20 | disposition home or self-care (01) ==
LOC: ANHLAB 15:20
PROVIDERS: PCP Family Medicine; Visit Provider Internal Medicine Hematology & Oncology
DX: D47.3 Essential (hemorrhagic) thrombocythemia (principal)
CPT/HCPCS: 36415; 85652; 86140

== ENCOUNTER 2025-06-22 16:11 | Outpatient (CLI) | payer BC, SELFPAY ==
--- NOTE | ~2025-06-22 | XR_ITS ---
EXAMINATION: XR chest 2V DATE: 06/22/2025 16:32 INDICATION: Cough. TECHNIQUE: Frontal and lateral views of the chest were obtained. COMPARISON: None. FINDINGS: Heart size is normal. Mild atherosclerotic changes of the thoracic aorta. Lungs are clear of acute process. IMPRESSION: 1. No acute pulmonary findings. Reviewed, dictated and finalized at location T. ER HELPER
== END 2025-06-22 16:12 | disposition home or self-care (01) ==
LOC: MICIMG 16:13
PROVIDERS: PCP Family Medicine; Visit Provider Student in an Organized Health Care Education/Training Program
DX: R05.9 Cough, unspecified (principal)
CPT/HCPCS: 71046